=== PATIENT | female | born 1960 | race Caucasian/White ===

== ENCOUNTER → 2018-02-08 11:57 | Outpatient (CLI) | payer OTHER, SELFPAY ==
[2018-02-08 12:23] LABS: Basophils % 0.4 % (0.1-2.0); Eosinophils # 0.1 K/mm3 (0.0-0.4); Eosinophils % 0.6 % (0.1-12.0); Hematocrit 45.3 % (37.0-47.0); Hemoglobin 14.7 g/dL (12.2-16.2); Lymphocytes # 2.4 K/mm3 (0.7-4.5); Lymphocytes % 29.3 K/mm3 (10-50); Mean Corpuscular HGB Conc 32.4 g/dL (31.8-35.4); Mean Corpuscular Volume 89.4 fl (81-99); Mean Platelet Volume 8.4 fl (7.4-10.4); Monocytes # 0.4 K/mm3 (0.1-1.0); Monocytes % 5.5 % (1.7-9.3); Neutrophils # 5.2 K/mm3 (1.8-7.8); Neutrophils % 64.2 % (37.0-80.0); Platelet Count 275 K/mm3 (142-424); Red Blood Count 5.07 M/mm3 (4.20-5.40); Red Cell Distribution Width 13.4 % (11.5-17.5); White Blood Count 8.2 K/mm3 (4.8-10.8)
[2018-02-08 14:17] LABS: Alanine Aminotransferase 15 U/L (12-78); Albumin Level 3.9 gm/dL (3.4-5.0); Albumin/Globulin Ratio 1.2 (1.1-1.8); Alkaline Phosphatase 92 U/L (46-116); Aspartate Amino Transferase 12 U/L (15-37); Bilirubin,Total 0.3 mg/dL (0.2-1.0); Blood Urea Nitrogen 11 mg/dL (7-18); Calcium 9.7 mg/dL (8.5-10.1); Carbon Dioxide 26 mmol/L (21.0-32.0); Chloride 106 mmol/L (98-107); Creatinine,Serum 0.66 mg/dL (0.55-1.02); Estimated Glomerular Filt Rate 92 ml/min (>60); GFR (African American) 111 ML/MIN (>60); Globulin 3.2 gm/dl (1.3-3.2); Glucose 87 mg/dL (74-106); Sodium 143 mmol/L (136-145); Total Protein,Serum 7.1 gm/dL (6.4-8.2)
== END ==
PROVIDERS: Visit Provider Nurse Practitioner Obstetrics & Gynecology
DX: Z01.818 Encounter for other preprocedural examination (principal)
CPT/HCPCS: 36415; 80053; 85025

== ENCOUNTER 2018-02-13 07:30 | Inpatient (IN) ==
--- NOTE | 2018-03-01 07:07 | Progress Note ---
[facility] Anesthesia Checklist - Patient Identification Patient Identification: Arm Band, Verbal (Name & ) - Structural Data Admitted From: Home Consent for Planned Operative Procedure(s) Verified: Yes Verified Documents: Surgical Consent, History and Physical - NPO Status Verified Time NPO: 22:00 - Additional verifications Patient : No Anesthesia Reactions: No - Airway Assessment C-Spine Mobility Assessed: Yes TMJ Mobility Assessed: Yes Dentition: Edentulous - Neurological Assessment Level of Consciousness: Awake Hx Seizures: No Numbness or tingling in extremities: No - Anesthesia Plan Anesthesia Risk discussed: Yes Anesthesia Plan: Verified ASA Class: III Anesthesia Type: General [facility] Anesthesia HX I have reviewed the patient's past medical history: Yes Medical History: Reports:: Chronic Obstructive Pulmonary Disease (COPD), Coronary Artery Disease, Gastroesophageal Reflux Disease(GERD) Denies:: Anxiety, Asthma, Cancer, Depression, Diabetes Mellitus Type 1, Diabetes Mellitus Type 2, Hyperlipidemia, Hypertension, Internal Pacemaker, MRSA , Seizures Other Medical History: Reports: Other (Positive for smoking tobacco). Denies: Blood Transfusion Reaction Other Surgeries: Yes: Tubal Ligation. No: Pacemaker Amputation: No Fractures: No *Family Hx:: Cancer
--- NOTE | 2018-03-01 08:42 | Operative Note ---
Date of procedure: 03/01/18 Pre-op Diagnosis:: Right ovarian mass Post-op Diagnosis:: Right ovarian teratoma with struma ovarii Procedure performed:: Total abdominal hysterectomy, bilateral salpingo-oophorectomy, peritoneal washings Surgeon:: Gutierrez Chaney MD Shrimp Boat Captain(s):: Dr. Gutierrez DRESSMAKER GARMENT FITTER:: Other (Joel bentley) Anesthesia: GETA Estimated blood loss (mL): 250 Clinical Note:: Is a 57-year-old lady who had an ultrasound that showed a right ovarian mass. Initially it was about 4 cm in size. She had a CA 125 that was negative. I followed her 3 months later and it had grown from 4 cm to 5-1/2 cm. Since it got larger in size we offered her total abdominal hysterectomy and bilateral salpingo-oophorectomy with peritoneal washings and possible omentectomy. Risks and benefits of surgery were discussed with the patient prior to surgery. Operative findings:: She had a 6 cm right ovary. The ovary was not adherent and it seemed firm to touch. There was a small nodule approximately centimeter in size on the external aspect of the right ovary. The left ovary was small and atrophic. Both tubes appeared atrophic. The uterus itself was small and postmenopausal. There were no masses in the pelvis or studding of the peritoneum. I examined the upper abdomen and the liver felt smooth with no nodules. Operative note:: She was taken to the operating room where general anesthesia was found be adequate. We also did a preoperative spinal. She was prepped and draped in the normal sterile fashion in the supine position. A Luna catheter was in the bladder. A midline incision was made with knife and carried through to the underlying layer of fascia with cautery. The fascia was then opened in the midline and extended superiorly and inferiorly with cautery. We then grasped the peritoneum and opened this up with Metzenbaum scissors. This incision was then further extended using cautery with good visualization of the bladder inferiorly. We then performed peritoneal washings. We then inserted an O'Mundo-O'Garcia retractor and packed away the bowel with warm moist packs. The uterine cornua were grasped with large Xi clamps. The left round ligament was then grasped and suture ligated. The round ligament was then cut and the anterior peritoneum was opened to the midline. I then fenestrated the posterior aspect of the broad ligament and isolated the infundibulopelvic ligament. This was then clamped cut and doubly suture ligated. I then freed up the peritoneum posteriorly and clamped across the left uterine artery at the internal office. This was then cut and suture ligated. The right round ligament was then grasped and suture ligated. I opened up the round ligament on the right side and then opened the anterior peritoneum to the midline joining up with the other side. The posterior aspect of the right broad ligament was fenestrated with finger and then the infundibulopelvic ligament was clamped with you. This was then cut and doubly suture ligated. At this time I elected to remove the right ovary and I did this at the cornua of the uterus. It was sent to pathology. Pathology showed that it was a benign teratoma with mostly thyroid tissue. There was a small 1 cm fibroid on the outside of the ovary as well. We then isolated and skeletonized the right uterine artery and a Rashard clamp was placed across the uterine artery on the right side at the internal loss. This was cut and suture ligated. We then freed up the bladder anteriorly using both sharp and blunt dissection. Straight Rashard clamps were then used to take down the cardinal and uterosacral ligaments in a [id number] fashion on the left side. This was similar performed on the right side. We clamped cut and suture ligated as we went. We then clamped across the vaginal vault using curved Rashard clamps on both the left and right side. The uterus was then amputated from the top of the vagina. The vaginal fornices were then closed with 0 Vicryl suture in a Rashard fashion. The vault was closed with a single interrupted [id number] 0 Vicryl suture. The pelvis was then rinsed with warm saline and hemostasis was assured. We then placed a large piece of Gelfoam over the vaginal vault. The retractors and packs were removed. The peritoneum was then grasped and closed using running 0 Vicryl suture. The fascia was then closed from superior to inferior using #1 PDS suture. Subcutaneous tissues were then irrigated with warm water and these subcu tissues were then closed using running 2-0 Monocryl suture. Marla were used to close the skin. Sterile dressing was applied. The patient tolerated procedure well and was taken to the recovery room in excellent condition. All sponge instrument and needle counts were correct. The estimated blood loss was approximately 250 cc. Condition: stable Disposition: PACU Specimens:: Uterus, fallopian tubes, bilateral ovaries, peritoneal washings Complications:: None
--- NOTE | 2018-03-01 09:01 | Progress Note ---
[facility] Anesthesia Record Part II Discharge Time: 09:25 Destination: Medical Surgical Department PACU nurse assessment reviewed?: Yes Patient Condition:: Good Anesthesia Complications:: None
--- NOTE | 2018-03-01 09:01 | Progress Note ---
[facility] Anesthesia Record Part I Intake, IV Amount: 1,600 Estimated blood loss (mL): 250 Urine output (mL): 200 Blood Products used (#): none Blood Pressure: 96/57 SaO2: 93 Pulse Rate: 73 Respiratory Rate: 13 Temperature: 97.0 F Patient is:: Drowsy, Nasal O2, Stable Stable to PACU at:: 08:55
[2018-03-01 10:35] LABS: Hematocrit 39.2 % (37.0-47.0); Hemoglobin 12.9 g/dL (12.2-16.2)
[2018-03-02 07:20] LABS: Basophils % 0.2 % (0.1-2.0); Eosinophils # 0.1 K/mm3 (0.0-0.4); Eosinophils % 0.5 % (0.1-12.0); Lymphocytes # 2.3 K/mm3 (0.7-4.5); Lymphocytes % 24.6 K/mm3 (10-50); Mean Corpuscular HGB Conc 32.6 g/dL (31.8-35.4); Mean Corpuscular Hemoglobin 29.4 pg (27.0-31.2); Mean Platelet Volume 8.8 fl (7.4-10.4); Monocytes # 0.6 K/mm3 (0.1-1.0); Monocytes % 5.9 % (1.7-9.3); Neutrophils # 6.5 K/mm3 (1.8-7.8); Neutrophils % 68.9 % (37.0-80.0); Platelet Count 193 K/mm3 (142-424); Red Blood Count 3.88 M/mm3 (4.20-5.40); Red Cell Distribution Width 13.6 % (11.5-17.5); White Blood Count 9.5 K/mm3 (4.8-10.8)
[2018-03-02 07:22] LABS: Anion Gap 6.8 mEq/L (5-15); Potassium 3.8 mmoL/L (3.5-5.1)
[2018-03-02 07:26] LABS: Hemoglobin 11.5 g/dL (12.2-16.2)
--- NOTE | 2018-03-02 10:30 | Progress Note ---
Internal Medicine - PN: Subj *Date: 03/02/18 *Time: 10:27 Interval history: She is doing very well this morning. She is eating and drinking and ambulating. She has had her catheter removed and she is voiding. She denies any chest pain, shortness of breath or calf tenderness. Exam Vital signs and Labs for Last 24 Hours: Temp Pulse Resp BP Pulse Ox 98.3 F 74 18 99/45 96 03/02/18 08:00 03/02/18 08:00 03/02/18 08:00 03/02/18 08:00 03/02/18 08:00 Laboratory Results - last 24 hr 03/01/18 10:27: Hgb 12.9, Hct 39.2 03/02/18 06:54: WBC 9.5, RBC 3.88 L, Hgb 11.5 L D, Hct 35.0 L, MCV 90.0, MCH 29.4, MCHC 32.6, RDW 13.6, Plt Count 193, MPV 8.8, Neut % (Auto) 68.9, Lymph % ( Auto) 24.6, [place] % (Auto) 5.9, Eos % (Auto) 0.5, Baso % (Auto) 0.2, Neut # (Auto ) 6.5, Lymph # (Auto) 2.3, [place] # (Auto) 0.6, Eos # (Auto) 0.1, Baso # (Auto) 0.0 03/02/18 06:54: Sodium 141, Potassium 3.8, Chloride 109 H, Carbon Dioxide 29, Anion Gap 6.8, BUN 6 L, Creatinine 0.62, Estimated Creat Clear 94, Estimated GFR 99, Est GFR ( Amer) 120, Glucose 88 I & O for Last 24 hours: Intake & Output 02/27/18 02/28/18 03/01/18 03/02/18 11:59 11:59 11:59 11:59 Intake Total 1650 / 1650 3242 / 3242 Output Total 2600 / 2600 Balance 1625 / 1625 642 / 642 - Constitutional no acute distress - *Routine HEENT Exam Head: Present: normocephalic - *Routine Respiratory Exam Comments: She has good air entry with no accessory muscle use. - *Routine Cardiovascular Exam Present: Normal S1, Normal S2 - *Routine Abdominal Exam Present: soft, normoactive bowel sounds Comments: Her incision is clean and dry. Assessment and Plan (1) Ovarian teratoma Current visit: Yes Status: Acute Category: Medical Code(s): D27.9 - Benign neoplasm of unspecified ovary - Assessment and plan all Dx Assessment and Plan for all problems:: She is doing very well this morning. She is eating and drinking and ambulating. She is voiding well. We will plan to send her home in 48 hours.
--- NOTE | 2018-03-02 10:52 | Pharmacy Consult Notes ---
[facility] Pharmacy VTE Monitoring - Patient Demographics Admission date: 03/01/18 Report Date: 03/02/18 Time: 10:51 Allergies/Adverse Reactions: Patient Allergies No Known Allergies Allergy (Verified 03/01/18 16:12) Height: 1.63 m Weight: 60.328 kg Patient Problems: Current Active Problems Ovarian teratoma (Acute) - VTE Risk Labs: VTE Related Lab Results Hgb 11.5 g/dL (12.2-16.2) L D 03/02/18 06:54 Hct 35.0 % (37.0-47.0) L 03/02/18 06:54 Plt Count 193 K/mm3 (142-424) 03/02/18 06:54 BUN 6 mg/dL (7-18) L 03/02/18 06:54 Creatinine 0.62 mg/dL (0.55-1.02) 03/02/18 06:54 Estimated Creat Clear 94 mL/min (0-300) 03/02/18 06:54 - Prophylaxis VTE Prophylaxis Ordered?: Yes Types of VTE Prophylaxis: IPCS Knee High Location of Applied Device: Bilateral Lower Extremeties Pharmacologic Type: Enoxaparin
--- NOTE | 2018-03-03 18:38 | Progress Note ---
Internal Medicine - PN: Subj *Date: 03/03/18 *Time: 13:35 Interval history: POD #2 No new complaints Ambulating and voiding without difficulty Tolerating regular diet Asymptomatic with mild anemia (Hgb 11.5); denies CP/SOB/dizziness Exam Vital signs and Labs for Last 24 Hours: Temp Pulse Resp BP Pulse Ox 98.4 F 86 18 124/70 96 03/03/18 16:00 03/03/18 16:00 03/03/18 16:00 03/03/18 16:00 03/03/18 16:00 Postop Hgb 11.5 (preop 12.9) I & O for Last 24 hours: Intake & Output 03/01/18 03/02/18 03/03/18 03/04/18 11:59 11:59 11:59 11:59 Intake Total 1650 / 1650 3722 / 3722 3331 / 3331 Output Total 2950 / 2950 3900 / 3900 1500 / 1500 Balance 1625 / 1625 772 / 772 -569 / -569 -1500 / -1500 Weight 133 lb - Constitutional no acute distress - *Routine Respiratory Exam Absent: accessory muscle use, respiratory distress - *Routine Cardiovascular Exam Absent: tachycardia - *Routine Abdominal Exam Present: soft. Absent: tenderness, distended, guarding Comments: dressing dry/intact - *Routine Extremities Exam Present: pulses intact. Absent: edema, tenderness - *Routine Skin Exam Present: dry, warm. Absent: lesions, rash - *Routine Neurological Exam Present: alert, oriented X3, normal speech. Absent: altered mental status - Routine Psychiatric Exam Present: normal affect. Absent: depressed, anxious Assessment and Plan (1) Ovarian teratoma Current visit: Yes Status: Acute Category: Medical Code(s): D27.9 - Benign neoplasm of unspecified ovary (2) S/P hysterectomy with oophorectomy Current visit: Yes Status: Acute Category: Surgical Code(s): Z90.710 - Acquired absence of both cervix and uterus; Z90.721 - Acquired absence of ovaries, unilateral (3) Anemia due to acute blood loss Current visit: Yes Status: Acute Category: Medical Code(s): D62 - Acute posthemorrhagic anemia - Assessment and plan all Dx Assessment and Plan for all problems:: POD # 2 Appropriate progress Continue routine postop care Anticipate discharge home in am
--- NOTE | 2018-03-04 08:05 | Discharge Summary ---
General - General Admission date:: 03/01/18 Discharge date: 03/04/18 HPI HPI: She is a 57-year-old lady who complained of a right-sided mass. It had grown from 4-5 cm and as result of that she was offered total abdominal history and bilateral salpingo-oophorectomy. We were concerned that it may have been a cancer given its size but her CA 125 was normal and at the time of surgery her pathology report revealed a teratoma. Hospital Course Hospital Course: She underwent a total abdominal hysterectomy and bilateral salpingo- oophorectomy through a midline incision. Peritoneal washings were done as well. A frozen section revealed a teratoma which was mostly thyroid tissue. She has done well postoperatively and has remained afebrile throughout her hospitalization. She is eating and drinking and ambulating. She is voiding well. She has not had a bowel movement yet. She denies any chest pain, shortness of breath or calf tenderness. She is a smoker and has not been smoking or asking for a patch while hospitalized as well. She says she is going to try and quit smoking. She will be discharged home to follow-up with me in 2 weeks time to have her abdifatah removed. She will take whatever she needs to make her bowels move. She was given a prescription for Percocet 5/325, 30 tablets and she will take ibuprofen as well. Her condition on discharge is stable and improved. Objective Vital signs: Temp Pulse Resp BP Pulse Ox 98.4 F 75 18 128/76 96 03/04/18 07:40 03/04/18 07:40 03/04/18 07:40 03/04/18 07:40 03/04/18 07:40 no acute distress - *Routine HEENT Exam Head: Present: normocephalic - *Routine Abdominal Exam Present: soft, normoactive bowel sounds DS: Diagnosis - Discharge Diagnosis (1) Ovarian teratoma Status: Acute (2) S/P hysterectomy with oophorectomy Status: Acute (3) Anemia due to acute blood loss Status: Acute Discharge Plan - Patient Discharge Instructions ACTIVITY: No heavy lifting DIET: continue same diet - Follow up Plan Disposition: Home, Self-Jail Medications: Home Medications Medication Instructions Recorded Confirmed Type metoprolol tartrate 25 mg tablet 25 mg PO BID 02/13/18 03/01/18 History Prescriptions/Medication Reconciliation: Continue metoprolol tartrate 25 mg tablet 25 mg PO BID
== END 2018-03-04 09:20 | disposition home or self-care (01) ==
LOC: 2ND 03-01 06:03 → EDSTATUS 03-01 07:30 → OB 03-01 09:30
PROVIDERS: ADMIT Nurse Practitioner Obstetrics & Gynecology; ATTEND Nurse Practitioner Obstetrics & Gynecology

== ENCOUNTER → 2018-02-13 10:15 | Outpatient (CLI) | payer OTHER, SELFPAY ==
[2018-02-13 11:21] LABS: T4 (Thyroxine) 9.1 ug/dl (4.7-13.3); Thyroid Stimulating Hormone 4.43 uIU/ml (0.358-3.740); Triiodothryronine (T3) Uptake 33 % (31-39)
== END ==
PROVIDERS: Visit Provider Nurse Practitioner Obstetrics & Gynecology
DX: Z01.818 Encounter for other preprocedural examination (principal); Z01.419 Encounter for gynecological examination (general) (routine) without abnormal findings; R53.82 Chronic fatigue, unspecified
CPT/HCPCS: 36415; 84436; 84443; 84479

== ENCOUNTER → 2022-01-10 14:34 | Outpatient (CLI) | payer OTHER, SELFPAY ==
--- NOTE | 2022-01-10 14:40 | XR_ITS ---
FINAL REPORT CLINICAL HISTORY: Pneumonia LLL FINDINGS: Two views of the chest were obtained. The heart size and pulmonary vascularity are within normal limits. The mediastinum is normal. No acute pulmonary abnormality is identified. There is no pneumothorax. The bony thorax is intact. IMPRESSION: No active cardiopulmonary disease. Reviewed, Interpreted and Dictated by Ryan Montiel III, MD Transcribed by Homa Roberson Authenticated by Ryan Montiel III, MD on 01/10/2022 03:41:32 PM [facility]
== END ==
PROVIDERS: PCP Family Medicine; Visit Provider Internal Medicine Pulmonary Disease
DX: R06.02 Shortness of breath (principal)
CPT/HCPCS: 71046

== ENCOUNTER → 2022-02-01 14:45 | Outpatient (CLI) | payer OTHER, SELFPAY ==
--- NOTE | 2022-02-01 14:45 | CT_ITS ---
FINAL REPORT CLINICAL HISTORY: CURRENT SMOKER FINDINGS: Low-Dose Chest CT CTDI vol (mGy): 2.90 DLP (mGy-cm): 104.73 Axial images were obtained from the lung apex to the mid abdomen by computed tomography. Low-dose protocol was utilized. FINDINGS: CHEST: There is no axillary adenopathy. There is no hilar or mediastinal adenopathy. The heart is proper size. There is no pericardial or pleural effusion. Limited images of the upper abdomen are unremarkable. Lung window images demonstrate mild changes of emphysema. There is mild pulmonary scarring. There are several calcified granulomas. There is a 5 mm nodule in the medial left upper lobe, seen on image 28. On image 60, there is a 2 mm nodule in the posterior right lower lobe. There is a 7 mm ground-glass nodule in the lateral right middle lobe seen on image 55. IMPRESSION: Bilateral pulmonary nodules as described. Lung RADS category 2. Recommend 12 month follow-up low-dose chest CT. Reviewed, Interpreted and Dictated by Ryan Montiel III, MD Transcribed by Laney Lui Authenticated by Ryan Montiel III, MD on 02/01/2022 04:10:43 PM [facility]
== END ==
PROVIDERS: PCP Family Medicine; Visit Provider Internal Medicine Pulmonary Disease
DX: Z87.891 Personal history of nicotine dependence (principal); Z12.2 Encounter for screening for malignant neoplasm of respiratory organs
CPT/HCPCS: 71271

== ENCOUNTER → 2022-04-29 08:30 | Outpatient (CLI) | payer OTHER, SELFPAY ==
[2022-04-28 18:08] LABS: Coronavirus 19, PCR Not Detected (NotDetected); Influenza A, PCR Not Detected (NotDetected); Influenza B, PCR Not Detected (NotDetected)
== END ==
PROVIDERS: PCP Emergency Medicine; Visit Provider Emergency Medicine
DX: Z20.822 Contact with and (suspected) exposure to COVID-19 (principal); R68.89 Other general symptoms and signs
CPT/HCPCS: C9803; U0003; U0005

== ENCOUNTER → 2022-06-20 11:40 | Outpatient (CLI) | payer OTHER, SELFPAY | PROVIDERS: PCP Emergency Medicine; Visit Provider Internal Medicine Gastroenterology | DX: Z01.812 Encounter for preprocedural laboratory examination (principal); Z20.822 Contact with and (suspected) exposure to COVID-19; Z13.810 Encounter for screening for upper gastrointestinal disorder | CPT/HCPCS: C9803; U0003; U0005 ==

== ENCOUNTER 2022-06-21 10:34 | Day surgery (SDC) | payer OTHER, SELFPAY ==
[2022-06-21 13:13] VITALS: BP 134/79; PULSE 68; RESP 18; TEMP 36.8; O2SAT 93; BMI 22.1
--- NOTE | 2022-06-21 14:31 | P.PN_ITS ---
PFSH PFS Medical History (Updated 06/21/22 @ 13:05 by Marisela Quintana RN) Arthritis COPD (chronic obstructive pulmonary disease) GERD (gastroesophageal reflux disease) Surgical History (Updated 06/21/22 @ 13:06 by Marisela Quintana RN) H/O: hysterectomy History of colonoscopy Family History (Updated 06/21/22 @ 13:06 by Marisela Quintana RN) Other Family history of myocardial infarction Social History (Updated 06/21/22 @ 13:09 by Marisela Quintana RN) Smoking Status: Current every day smoker tobacco type: cigarettes packs per day: 1 alcohol intake: never substance use type: denies use current occupational status: employed Travel in the last 8 weeks: None household members: family housing: house current occupation: caregiver current occupational exposures/hazards: Yes caffeine: Yes [facility] Anesthesia Checklist Patient Identification Patient Identification: Arm Band Structural Data Admitted From: Home Planned Operative Procedure/s: egd Consent for Planned Operative Procedure(s) Verified: Yes Verified Documents: Surgical Consent and History and Physical NPO Status Verified Time NPO: 00:00 Additional verifications Anesthesia Reactions: No Hx Blood Transfusions: No Blood Transfusion Reaction: No Airway Assessment C-Spine Mobility Assessed: Yes TMJ Mobility Assessed: Yes Dentition: Edentulous Neurological Assessment Level of Consciousness: Awake and Alert Anesthesia Plan Anesthesia Risk discussed: Yes Anesthesia Plan: Verified ASA Class: II Anesthesia Type: MAC
[2022-06-21 14:36] VITALS: O2SAT 97
--- NOTE | 2022-06-21 14:43 | HMH.SCOPE ---
Procedure: Date: 06/21/22 Patient Date of :: 1960 Procedure Performed:: EGD Indications:: GERD Performing Provider:: Irving Keller MD Referring Provider:: Oleksandr Wilcox MD Sedation:: See RN notes Procedure:: The gastroscope was gently passed through the incisoral orifice into the oral cavity and under direct visualization the esophagus was intubated. The endoscope was passed down the esophagus, through the stomach, and into the duodenum. Color, texture, mucosa, and anatomy of the esophagus, stomach, and duodenum were carefully examined with the scope. Findings:: Oropharynx: normal Esophagus: normal. Biopsies obtained. Empiric dilatation performed with 54F bougie dilator EG Junction: measured at 38 cm Cardia: normal Fundus: normal Body: normal Antrum: normal Duodenal bulb: normal Duodenum (second and third portion): normal Recommendations:: Await pathology results Continue pantoprazole 40 mg once daily Can use famotidine 20 mg 1-2 times per day as needed Avoid late night eating of large meal within 3 hours of bed time Complications:: None Estimated blood obtained (mL): 0
[2022-06-21 14:45] VITALS: BP 105/67; PULSE 65; RESP 18; TEMP 36.3; O2SAT 90
[2022-06-21 14:55] VITALS: BP 105/68; PULSE 60; RESP 16; O2SAT 98
[2022-06-21 15:05] VITALS: BP 117/70; PULSE 61; RESP 16; O2SAT 99
[2022-06-21 15:25] VITALS: BP 121/67; PULSE 63; RESP 16; TEMP 36.3; O2SAT 99
== END 2022-06-21 15:25 | disposition home or self-care (01) ==
PROVIDERS: PCP Emergency Medicine; Visit Provider Internal Medicine
PROC: 0DJ08ZZ Inspection of Upper Intestinal Tract, Via Natural or Artificial Opening Endoscopic (ICD-10-PCS; CPT 43235; principal; 2022-06-21 13:30)
DX: K21.9 Gastro-esophageal reflux disease without esophagitis (principal); Z72.0 Tobacco use; Z79.899 Other long term (current) drug therapy
CPT/HCPCS: 43239; 43248

== ENCOUNTER → 2022-08-02 15:30 | Outpatient (CLI) | payer OTHER, SELFPAY ==
[2022-08-02 18:28] LABS: Basophils # 0.1 K/mm3 (0-0.2); Basophils % 1.1 % (0.1-2.0); Eosinophils # 0.1 K/mm3 (0.0-0.4); Eosinophils % 1.3 % (0.1-12.0); Hemoglobin 14.5 g/dL (12.2-16.2); Lymphocytes # 3.5 K/mm3 (0.7-4.5); Lymphocytes % 43.3 % (10-50); Mean Corpuscular HGB Conc 32.2 g/dL (31.8-35.4); Mean Corpuscular Hemoglobin 28.2 pg (27.0-31.2); Mean Corpuscular Volume 87.5 fl (81-99); Mean Platelet Volume 10.4 fl (7.4-10.4); Monocytes # 0.6 K/mm3 (0.1-1.0); Monocytes % 7.6 % (1.7-9.3); Neutrophils # 3.8 K/mm3 (1.8-7.8); Neutrophils % 46.6 % (37.0-80.0); Platelet Count 401 K/mm3 (142-424); Red Blood Count 5.14 M/mm3 (4.20-5.40); Red Cell Distribution Width 15.6 % (11.5-17.5); White Blood Count 8.2 K/mm3 (4.8-10.8)
[2022-08-02 18:35] LABS: Alanine Aminotransferase 14 U/L (12-78); Albumin/Globulin Ratio 1.4 (1.1-1.8); Alkaline Phosphatase 125 U/L (38-126); Anion Gap 13.3 mEq/L (5-15); Aspartate Amino Transferase 24 U/L (14-36); Bilirubin,Total 0.2 mg/dl (0.2-1.3); Blood Urea Nitrogen 19 mg/dl (7-17); Calcium 9.3 mg/dl (8.4-10.2); Carbon Dioxide 27 mmol/L (22.0-30.0); Chloride 103 mmol/L (98-107); Chol/HDL Ratio 3.3 (1-3.5); Cholesterol 221 mg/dl (140-200); Estimated Glomerular Filt Rate 85 ml/min (>60); GFR (African American) 103 ML/MIN (>60); Globulin 2.8 g/dL (1.3-3.2); Glucose 87 mg/dl (74-100); HDL Cholesterol 66 mg/dl (40-60); Potassium 4.3 mmoL/L (3.5-5.1); Sodium 139 mmol/L (136-145); Total Protein,Serum 6.8 g/dl (6.3-8.2); Triglycerides 76 mg/dl (30-150); VLDL Cholesterol 15 mg/dL (0-40)
[2022-08-02 18:45] LABS: Direct LDL Cholesterol 127.75 mg/dL (100-129)
[2022-08-02 18:52] LABS: 25-OH Vitamin D, Total 13.3 ng/mL (30-100)
[2022-08-02 18:57] LABS: Amphetamine/Metha Screen,Urine Negative ng/ml (<1000); Barbiturates Screen,Urine Negative ng/ml (<200)
[2022-08-02 18:58] LABS: Benzodiazepines Screen,Urine Negative ng/ml (<200)
[2022-08-02 18:59] LABS: Cannabinoid Screen,Urine Negative ng/ml (<50); Cocaine Screen,Urine Negative ng/ml (<300)
[2022-08-02 19:00] LABS: Methadone Screen,Urine Negative ng/ml (<300)
[2022-08-02 19:01] LABS: Opiate Screen,Urine Negative ng/ml (<300); Phencyclidine Screen,Urine Negative ng/ml (<25)
[2022-08-02 19:07] LABS: Thyroid Stimulating Hormone 8.77 uIU/mL (0.465-4.68)
== END ==
PROVIDERS: PCP Emergency Medicine; Visit Provider Emergency Medicine
DX: D62 Acute posthemorrhagic anemia (principal); N39.0 Urinary tract infection, site not specified; E55.9 Vitamin D deficiency, unspecified; Z79.899 Other long term (current) drug therapy; B96.29 Other Escherichia coli [E. coli] as the cause of diseases classified elsewhere
CPT/HCPCS: 80053; 80061; 80305; 82306; 84443; 85025; 87086; 87088; 87186

== ENCOUNTER → 2022-08-15 12:46 | Outpatient (CLI) | payer OTHER, SELFPAY ==
--- NOTE | 2022-08-15 12:48 | US_ITS ---
FINAL REPORT CLINICAL HISTORY: RT CLAUDICATION,RT REST PAIN,SMOKER,HLD FINDINGS: ANKLE-BRACHIAL PRESSURE INDICES Pressure indices are as follows: RIGHT LOWER EXTREMITY: Ankle-brachial pressure index: 1.1 Comments: Normal LEFT LOWER EXTREMITY: Ankle-brachial pressure index: 1.0 Comments: Normal CONCLUSION: No evidence of significant obstructive peripheral vascular disease of the lower extremities Reviewed, Interpreted and Dictated by Ryan Montiel III, MD Transcribed by Laney Lui Authenticated and [facility]
--- NOTE | 2022-08-15 13:54 | MR_ITS ---
FINAL REPORT CLINICAL HISTORY: back pain lower back pain with pain , numbness, and tingling in right leg x 3 months FINDINGS: Multiplanar MR imaging of the lumbar spine was performed without contrast. On the sagittal T2-weighted images, disc degeneration is seen at multiple levels. There is disc space narrowing and endplate change at L4-L5. The vertebral alignment is normal. There is no evidence of fracture. No bony mass is identified. The conus has an unremarkable appearance. No significant canal stenosis is identified. L1-2: An annular bulge is present. There is no significant canal stenosis or neural foraminal narrowing. L2-3: An annular bulge is present. There is no significant canal stenosis or neural foraminal narrowing. L3-4: An annular bulge is present. There is no significant canal stenosis or neural foraminal narrowing. L4-5: There is an annular bulge, facet arthropathy and vertebral osteophytes. There is a right foraminal disc protrusion. There is moderate bilateral neural foraminal narrowing. L5-S1: There is an annular bulge and facet arthropathy. There is mild left neural foraminal narrowing. There is mild spurring of the left SI joint. IMPRESSION: Multilevel degenerative disc disease with areas of neural foraminal narrowing. Right foraminal disc protrusion at L4-L5 without significant central canal stenosis. Reviewed, Interpreted and Dictated by Ryan Montiel III, MD Transcribed by Balaji Pal Authenticated and [facility]
== END ==
PROVIDERS: PCP Emergency Medicine; Visit Provider Emergency Medicine
DX: M79.605 Pain in left leg (principal); M79.604 Pain in right leg; M54.9 Dorsalgia, unspecified; M54.50 Low back pain, unspecified
CPT/HCPCS: 72148; 76376; 93923

== ENCOUNTER → 2022-09-18 08:45 | Outpatient (POV) | payer OTHER, SELFPAY ==
--- NOTE | 2022-09-18 09:05 | EXP.PAIN.OV ---
HPI Data of Consult Patient: new to practice Consult date: 09/18/22 Requesting Physician: Shagufta Shirley APRN Primary Care Provider: Oleksandr Wilcox MD Consult Narrative Reason for consult: low back pain, leg pain History of present illness: Ms. Lee is a 62 year old female who presents today as a new patient. She is a referral from Dr. Oleksandr Wilcox's office. Patient rates her pain today a 7 out of 10. Patient states the pain is all in her low back that radiates down her legs to her knees with her right side being the most prominent. Patient states this has been going on for months and states that she did not have any trauma or injury that coincided with when her pain started. Patient states she has had this pain that has progressively worsened over time. Patient describes this as a aching sensation that is worse with prolonged walking or standing. Patient states that occasionally short-term sitting will help her pain symptoms. Patient states this does cause problems with performing activities of daily living such as grocery shopping or light housework. Patient has stated that she has had falls in the past. Patient states she does manage her pain symptoms with [id number] Tylenol or ibuprofen however she is now on Tylenol 3 that she states provides minimal improvement of her symptoms. Patient also is managed with gabapentin 100 mg 3 times a day from Dr. Wilcox's office. Patient denies any side effects from this medication. She states this medication is for her neuropathy. Patient states that she has not tried heat or ice. Patient has had physical therapy that provided worsening of her symptoms. Her Fish is [id number]. It has been reviewed and appropriate. CC: Shagufta Shirley APRN [facility] Disclaimer: The information contained in this section may have been updated after the patient was seen, as this information can be updated by other users. Medical History (Updated 09/18/22 @ 09:39 by Shagufta Shirley APRN) Arthritis COPD (chronic obstructive pulmonary disease) DDD (degenerative disc disease), lumbar GERD (gastroesophageal reflux disease) Surgical History (Updated 06/21/22 @ 13:06 by Marisela Quintana RN) H/O: hysterectomy History of colonoscopy Family History (Updated 06/21/22 @ 13:06 by Marisela Quintana RN) Other Family history of myocardial infarction Social History (Updated 06/21/22 @ 13:09 by Marisela Quintana RN) Smoking Status: Current every day smoker tobacco type: cigarettes packs per day: 1 alcohol intake: never substance use type: denies use current occupational status: employed Travel in the last 8 weeks: None household members: family housing: house current occupation: caregiver current occupational exposures/hazards: Yes caffeine: Yes Review of Systems Review of Systems Review of systems:: pertinent systems reviewed and negative unless documented below Review of systems (narrative): Review of Systems: General: No recent weight changes, no fever, no sleep disturbances Respiratory: No cough, no shortness of air, no recurring pulmonary infections Cardiovascular/peripheral vascular: No chest pain, no palpitations, no edema, no shortness of breath Gastrointestinal: No new onset incontinence, normal bowel movements reported Genitourinary: No new onset incontinence Musculoskeletal: Low back pain, leg pain Psychiatric: [Normal mood/affect] Neurological: [Denies weakness in extremities], [denies balance issues] Meds Home Medications and Allergies Home Medications Medication Instructions Recorded Confirmed Type loratadine 10 mg capsule 10 mg PO DAILY allergies 01/10/22 08/29/22 History montelukast 10 mg tablet 10 mg PO DAILY . 01/10/22 08/29/22 History escitalopram oxalate 10 mg tablet See Rx Instructions .Route 06/21/22 08/29/22 History .COMPLEX Depression clonazepam 0.5 mg tablet (Klonopin) 0.5 mg PO BID Anxiety #60 tabs 08/02/22 08/29/22 Rx
[2022-09-18 09:17] VITALS: BP 116/50; PULSE 78; RESP 18; O2SAT 97; BMI 22.3
== END ==
PROVIDERS: PCP Emergency Medicine; Visit Provider Nurse Practitioner Family
DX: M51.16 Intervertebral disc disorders with radiculopathy, lumbar region (principal); M46.1 Sacroiliitis, not elsewhere classified; M79.604 Pain in right leg; M79.605 Pain in left leg; Z72.0 Tobacco use; Z79.899 Other long term (current) drug therapy
CPT/HCPCS: 99202; G0463

== ENCOUNTER 2022-09-26 09:12 | Day surgery (SDC) | payer OTHER, SELFPAY ==
[2022-09-26 09:20] VITALS: BP 110/77; PULSE 90; RESP 18; TEMP 36.6; O2SAT 96; BMI 22.3
[2022-09-26 09:26] VITALS: BP 128/69; PULSE 81; RESP 18; O2SAT 98
[2022-09-26 09:27] VITALS: BP 128/69; PULSE 81; RESP 18; O2SAT 97
[2022-09-26 09:32] VITALS: BP 117/73; PULSE 82; RESP 18; O2SAT 96
--- NOTE | 2022-09-26 09:41 | P.PCN_ITS ---
Procedure Date: 09/26/22 Time: 09:15 Anesthesiologist:: Kelby Mina CRNA Complications:: None Pre-procedure Diagnosis:: Bilateral sacroiliitis Post-procedure Diagnosis:: Same Indications for Procedure:: Very pleasant 62-year-old female comes our clinic today for initial bilateral sacroiliac joint injections. Patient has extreme point tenderness over the bilateral sacroiliac joints. Patient describes having difficulty transitioning from sitting to standing. She rates her pain 7/10. Procedure Details:: Procedure: Bilateral sacroiliac joint injections under fluoroscopy Informed consent was obtained and the risks and benefits of the procedure were explained to the patient.~ The patient was taken to the procedure room and noninvasive monitors were placed including a noninvasive blood pressure cuff and pulse oximeter.~ The patient was placed prone on the procedure table. Both hips were cleansed using Betadine as a cleansing solution. C-arm fluoroscopy was used to view the right sacroiliac joint.~ The skin and subcutaneous tissues were anesthetized using lidocaine 1.5% and a 25-gauge needle.~ After this, a 22-gauge spinal needle was inserted under fluoroscopic guidance into the inferior aspect of the right sacroiliac joint.~ Omnipaque dye was injected and good spread was seen throughout the joint.~ After this, approximately 5 mL of bupivacaine, 0.25% and Depo-Medrol, 40 mg was incrementally injected into the right sacroiliac joint. We then moved to the left sacroiliac joint.~ The skin and subcutaneous tissues were anesthetized using lidocaine 1.5% and a 25-gauge needle.~ After this, a 22- gauge spinal needle was inserted under fluoroscopic guidance into the inferior aspect of the left sacroiliac joint.~ Omnipaque dye was injected and good spread was seen throughout the joint. After this, approximately 5 mL of bupivacaine, 0.25% and Depo-Medrol, 40 mg was incrementally injected into the left sacroiliac joint.~ The patient tolerated the procedure well with no complications. The patient was observed in the Pain Clinic and then was discharged home neurologically intact. Plan and Disposition:: Patient was discharged without pain.
== END 2022-09-26 09:32 | disposition home or self-care (01) ==
LOC: SC.PAINP 09:12
PROVIDERS: PCP Emergency Medicine; Visit Provider Nurse Anesthetist, Certified Registered
DX: M46.1 Sacroiliitis, not elsewhere classified (principal); F17.210 Nicotine dependence, cigarettes, uncomplicated
CPT/HCPCS: 27096; G0260; J1040

== ENCOUNTER → 2022-10-10 10:49 | Outpatient (POV) | payer OTHER, SELFPAY ==
[2022-10-10 11:05] VITALS: BP 112/54; PULSE 77; RESP 18; O2SAT 98; BMI 22.3
--- NOTE | 2022-10-10 11:31 | EXP.PAIN.SOA ---
[facility] Pain Management SOAP Note Subjective:: Patient is a pleasant 62-year-old female who presents today for follow-up of bilateral SI injections on 09/26/2022. We are currently treating the patient for low back pain, degenerative disc disease of lumbar spine with lumbar radiculopathy symptoms, sacroiliitis. Today the patient states she had at least 50% improvement following these injections that provided significant relief for approximately 2 weeks. Today she states her pain is a 5 out of 10. She denies any new trauma or injury. She denies any change location or type of pain she experiences. Patient does describe this as a aching, throbbing sensation that is worse with increased activity such as prolonged standing, walking, sitting. Patient does state this affects her ability to perform activities of daily living like grocery shopping or light housework. Patient is prescribed gabapentin 100 mg 3 times a day, clonazepam 0.5 mg twice a day and Tylenol 3 twice a day from Dr. Wilcox's office. Patient denies any side effects from these medications. She states these medications do help. Patient has tried physical therapy in the past however this worsened her symptoms. Her Fish is [id number]. Its been reviewed and appropriate. Review of Systems: General: No recent weight changes, no fever, no sleep disturbances Respiratory: No cough, no shortness of air, no recurring pulmonary infections Cardiovascular/peripheral vascular: No chest pain, no palpitations, no edema, no shortness of breath Gastrointestinal: No new onset incontinence, normal bowel movements reported Genitourinary: No new onset incontinence Musculoskeletal: Low back pain, bilateral leg pain Psychiatric: [Normal mood/affect] Neurological: [Denies weakness in extremities], [denies balance issues] Objective:: Physical Exam: General: Alert and oriented x3, no acute distress, pleasant and cooperative Lungs: Respirations even and unlabored, symmetrical chest expansion Eyes: PERRL Musculoskeletal: Flexion and extension of lumbar [spine] somewhat guarded secondary to pain, [antalgic gait noted] extreme point tenderness along bilateral SI's and positive bilateral Loli's, Tex's, Gaenslen's, compression and distraction exam Neurological: Speech clear, no gross sensory deficit Assessment:: Degenerative disc disease of lumbar spine with lumbar radiculopathy symptoms, low back pain, sacroiliitis Plan:: Patient continues to experience significant pain along her bilateral SI's. Patient had limited range of motion of her lumbar spine along with extreme point tenderness along bilateral SI's and positive bilateral Loli's, Tex's, Gaenslen's, compression and distraction exam. Patient previously had a SI injection that provided significant improvement of at least 50% lasting 2 weeks. I have discussed with the patient that she may benefit from repeat bilateral SI injections. Risk and benefits were discussed with the patient. She would like to proceed forward with this plan of care. We will schedule her for bilateral SI injections. Patient has been instructed to contact the clinic with any concerns before the next appointment. Dr. Robbins has reviewed this note and agrees with this plan of care. This note was dictated using voice recognition software and make contain errors or omissions. [facility] Disclaimer: The information contained in this section may have been updated after the patient was seen, as this information can be updated by other users. Medical History Arthritis COPD (chronic obstructive pulmonary disease) DDD (degenerative disc disease), lumbar GERD (gastroesophageal reflux disease) Surgical History H/O: hysterectomy History of colonoscopy Family History Other Family history of myocardial infarction Social
== END ==
PROVIDERS: PCP Emergency Medicine; Visit Provider Nurse Practitioner Family
DX: M51.16 Intervertebral disc disorders with radiculopathy, lumbar region (principal); M46.1 Sacroiliitis, not elsewhere classified; F17.210 Nicotine dependence, cigarettes, uncomplicated; Z79.899 Other long term (current) drug therapy
CPT/HCPCS: 99212; G0463

== ENCOUNTER 2022-10-13 11:04 | Day surgery (SDC) | payer OTHER, SELFPAY ==
[2022-10-13 11:18] VITALS: BP 111/72; PULSE 73; RESP 18; TEMP 36.6; O2SAT 98; BMI 22.3
[2022-10-13 11:21] VITALS: BP 143/77; PULSE 76; RESP 18; O2SAT 98
[2022-10-13 11:23] VITALS: BP 143/77; PULSE 76; RESP 18; O2SAT 97
[2022-10-13 11:28] VITALS: BP 101/63; PULSE 72; RESP 18; O2SAT 98
--- NOTE | 2022-10-13 12:00 | P.PCN_ITS ---
Procedure Date: 10/13/22 Time: 11:45 Anesthesiologist:: Kelby Mina CRNA Complications:: None Pre-procedure Diagnosis:: Bilateral sacroiliitis Post-procedure Diagnosis:: Same Indications for Procedure:: Patient is a pleasant 62-year-old female comes our clinic today for bilateral sacroiliac joint injections. She has extreme point tenderness upon examination over the bilateral sacroiliac joint areas. She rates her pain 7/10. Patient has had these injections in the past with significant improvement terms of her posterior hip pain bilaterally. Procedure Details:: Procedure: Bilateral sacroiliac joint injections under fluoroscopy Informed consent was obtained and the risks and benefits of the procedure were explained to the patient.~ The patient was taken to the procedure room and noninvasive monitors were placed including a noninvasive blood pressure cuff and pulse oximeter.~ The patient was placed prone on the procedure table. Both hips were cleansed using Betadine as a cleansing solution. C-arm fluoroscopy was used to view the right sacroiliac joint.~ The skin and subcutaneous tissues were anesthetized using lidocaine 1.5% and a 25-gauge needle.~ After this, a 22-gauge spinal needle was inserted under fluoroscopic guidance into the inferior aspect of the right sacroiliac joint.~ Omnipaque dye was injected and good spread was seen throughout the joint.~ After this, approximately 5 mL of bupivacaine, 0.25% and Depo-Medrol, 40 mg was incrementally injected into the right sacroiliac joint. We then moved to the left sacroiliac joint.~ The skin and subcutaneous tissues were anesthetized using lidocaine 1.5% and a 25-gauge needle.~ After this, a 22- gauge spinal needle was inserted under fluoroscopic guidance into the inferior aspect of the left sacroiliac joint.~ Omnipaque dye was injected and good spread was seen throughout the joint. After this, approximately 5 mL of bupivacaine, 0.25% and Depo-Medrol, 40 mg was incrementally injected into the left sacroiliac joint.~ The patient tolerated the procedure well with no complications. The patient was observed in the Pain Clinic and then was discharged home neurologically intact. Plan and Disposition:: Patient was discharged without incident.
== END 2022-10-13 11:28 | disposition home or self-care (01) ==
LOC: SC.PAINP 11:05
PROVIDERS: PCP Emergency Medicine; Visit Provider Nurse Anesthetist, Certified Registered
DX: M46.1 Sacroiliitis, not elsewhere classified (principal)
CPT/HCPCS: 27096; G0260; J1040

== ENCOUNTER → 2022-10-26 14:51 | Outpatient (POV) | payer OTHER, SELFPAY ==
[2022-10-26 15:22] VITALS: BP 120/89; PULSE 80; RESP 18; O2SAT 98; BMI 25.7
--- NOTE | 2022-10-26 15:24 | EXP.PAIN.SOA ---
[facility] Pain Management SOAP Note Subjective:: Patient is a pleasant 62-year-old female who presents today for follow-up of bilateral SI injections on 10/13/2022. We are currently treating the patient for degenerative disc disease of lumbar spine with lumbar radiculopathy symptoms, low back pain, sacroiliitis. Today the patient states that she has had at least 60% improvement and feels like these injections are still providing relief. Today she does rate her pain a 7 out of 10 however she states it is more so due to the cold rainy weather today. Patient does state that her pain is often affected by the weather and does believe it is just arthritis. Patient denies any new trauma or injury. Patient denies any change location or type of pain she experiences. Patient is currently managed with gabapentin 100 mg 3 times a day and clonazepam 0.5 mg twice a day from Dr. Wilcox's office. Patient denies any side effects from this medication. She states this medication does help her pain symptoms. Her Fish is [id number]. Its been reviewed and appropriate. Review of Systems: General: No recent weight changes, no fever, no sleep disturbances Respiratory: No cough, no shortness of air, no recurring pulmonary infections Cardiovascular/peripheral vascular: No chest pain, no palpitations, no edema, no shortness of breath Gastrointestinal: No new onset incontinence, normal bowel movements reported Genitourinary: No new onset incontinence Musculoskeletal: Low back pain Psychiatric: [Normal mood/affect] Neurological: [Denies weakness in extremities], [denies balance issues] Objective:: Physical Exam: General: Alert and oriented x3, no acute distress, pleasant and cooperative Lungs: Respirations even and unlabored, symmetrical chest expansion Eyes: PERRL Musculoskeletal: Flexion and extension of lumbar [spine] somewhat guarded secondary to pain, [antalgic gait noted] Neurological: Speech clear, no gross sensory deficit ORT score updated with minimal risk of 1 Assessment:: Degenerative disc disease of lumbar spine with lumbar radiculopathy symptoms, low back pain, sacroiliitis Plan:: Patient has had significant pain relief following her bilateral SI injections and at this time does not need any further injective therapy. Patient will return to clinic in 1 month for reevaluation of symptoms and follow-up. Patient has been instructed to contact the clinic with any concerns before the next appointment. Dr. Robbins has reviewed this note and agrees with this plan of care. This note was dictated using voice recognition software and make contain errors or omissions. [facility] Disclaimer: The information contained in this section may have been updated after the patient was seen, as this information can be updated by other users. Medical History Arthritis COPD (chronic obstructive pulmonary disease) DDD (degenerative disc disease), lumbar GERD (gastroesophageal reflux disease) Surgical History H/O: hysterectomy History of colonoscopy Family History Other Family history of myocardial infarction Social History Smoking Status: Current every day smoker tobacco type: cigarettes packs per day: 1 alcohol intake: never substance use type: denies use current occupational status: retired Travel in the last 8 weeks: None household members: family housing: house current occupation: caregiver current occupational exposures/hazards: Yes caffeine: Yes
== END ==
PROVIDERS: PCP Emergency Medicine; Visit Provider Nurse Practitioner Family
DX: M51.16 Intervertebral disc disorders with radiculopathy, lumbar region (principal); M46.1 Sacroiliitis, not elsewhere classified
CPT/HCPCS: 99212; G0463

== ENCOUNTER → 2022-11-27 14:56 | Outpatient (POV) | payer OTHER, SELFPAY ==
--- NOTE | 2022-11-27 15:02 | EXP.PAIN.SOA ---
[facility] Pain Management SOAP Note Subjective:: Patient is a pleasant 62-year-old female who presents today for follow-up. We are currently treating the patient for degenerative disc disease of the lumbar spine with lumbar radiculopathy symptoms, low back pain, sacroiliitis. Today she rates her pain a 5 out of 10. Patient denies any new trauma or injury. Patient states that her previous SI injections have still been giving additional relief however she has not been feeling the best in regards to her heart and lungs. Patient states that her primary care doctor is scheduling her to see Dr. Hart coming up. Patient also states that she was seen Dr. Benito for her respiratory issues however she has not had a recent visit with them. Patient does state that she does plan to follow-up in his office as well. Patients last bilateral SI injections in September provided at least 60% improvement. At this time she states she still has been getting additional relief and does not need any additional injective therapy. Patient is currently managed with gabapentin 100 mg 3 times a day and clonazepam 0.5 mg twice a day from Dr. Wilcox's office. Patient denies any side effects from these medications. Her Fish is [id number]. Its been reviewed and appropriate. Review of Systems: General: No recent weight changes, no fever, no sleep disturbances Respiratory: No cough, no shortness of air, no recurring pulmonary infections Cardiovascular/peripheral vascular: No chest pain, no palpitations, no edema, no shortness of breath Gastrointestinal: No new onset incontinence, normal bowel movements reported Genitourinary: No new onset incontinence Musculoskeletal: Low back pain Psychiatric: [Normal mood/affect] Neurological: [Denies weakness in extremities], [denies balance issues] Objective:: Physical Exam: General: Alert and oriented x3, no acute distress, pleasant and cooperative Lungs: Respirations even and unlabored, symmetrical chest expansion Eyes: PERRL Musculoskeletal: Flexion and extension of lumbar [spine] somewhat guarded secondary to pain, [antalgic gait noted] Neurological: Speech clear, no gross sensory deficit Assessment:: Degenerative disc disease of lumbar spine with lumbar radiculopathy symptoms, low back pain, sacroiliitis Plan:: Patient is currently experiencing some additional symptoms related to her heart and lungs. Patient is planning on scheduling follow-up visits with both Dr. Hart and Dr. Benito in the future. Patient will return to our clinic in 3 months for reevaluation of symptoms and follow-up. Patient has been instructed to contact the clinic with any concerns before the next appointment. Dr. Robbins has reviewed this note and agrees with this plan of care. This note was dictated using voice recognition software and make contain errors or omissions. [facility] Disclaimer: The information contained in this section may have been updated after the patient was seen, as this information can be updated by other users. Medical History Arthritis COPD (chronic obstructive pulmonary disease) DDD (degenerative disc disease), lumbar GERD (gastroesophageal reflux disease) Surgical History H/O: hysterectomy History of colonoscopy Family History Other Family history of myocardial infarction Social History Smoking Status: Current every day smoker tobacco type: cigarettes packs per day: 1 alcohol intake: never substance use type: denies use current occupational status: retired Travel in the last 8 weeks: None household members: family housing: house current occupation: caregiver current occupational exposures/hazards: Yes caffeine: Yes
[2022-11-27 15:11] VITALS: BP 133/79; PULSE 87; RESP 18; O2SAT 97; BMI 21.4
== END ==
PROVIDERS: PCP Emergency Medicine; Visit Provider Nurse Practitioner Family
DX: M51.16 Intervertebral disc disorders with radiculopathy, lumbar region (principal); M54.50 Low back pain, unspecified; M46.1 Sacroiliitis, not elsewhere classified
CPT/HCPCS: 99212; G0463

== ENCOUNTER → 2022-12-14 09:43 | Outpatient (CLI) | payer OTHER, SELFPAY ==
[2022-12-14 10:17] LABS: Basophils # 0.1 K/mm3 (0-0.2); Basophils % 0.8 % (0.1-2.0); Eosinophils # 0.2 K/mm3 (0.0-0.4); Eosinophils % 1.5 % (0.1-12.0); Hematocrit 45.3 % (37.0-47.0); Hemoglobin 14.4 g/dL (12.2-16.2); Lymphocytes # 2.8 K/mm3 (0.7-4.5); Lymphocytes % 23.8 % (10-50); Mean Corpuscular HGB Conc 31.8 g/dL (31.8-35.4); Mean Corpuscular Hemoglobin 29.4 pg (27.0-31.2); Mean Corpuscular Volume 92.2 fl (81-99); Mean Platelet Volume 9.2 fl (7.4-10.4); Monocytes % 8.3 % (1.7-9.3); Neutrophils # 7.7 K/mm3 (1.8-7.8); Neutrophils % 65.6 % (37.0-80.0); Platelet Count 354 K/mm3 (142-424); Red Blood Count 4.91 M/mm3 (4.20-5.40); Red Cell Distribution Width 15.2 % (11.5-17.5); White Blood Count 11.7 K/mm3 (4.8-10.8)
[2022-12-14 11:25] LABS: Alanine Aminotransferase 19 U/L (12-78); Albumin Level 4.3 g/dl (3.5-5.0); Alkaline Phosphatase 94 U/L (38-126); Anion Gap 8.2 mEq/L (5-15); Aspartate Amino Transferase 22 U/L (14-36); Bilirubin,Direct 0.3 mg/dl (0.0-0.4); Bilirubin,Indirect 0.2 mg/dL (0.0-0.9); Bilirubin,Total 0.5 mg/dl (0.2-1.3); Bilirubin,Unconjugated 0.2 mg/dL (0.0-1.1); Blood Urea Nitrogen 15 mg/dl (7-17); Calcium 9.3 mg/dl (8.4-10.2); Carbon Dioxide 27 mmol/L (22.0-30.0); Chloride 106 mmol/L (98-107); Chol/HDL Ratio 2.4 (1-3.5); Cholesterol 184 mg/dl (140-200); Estimated Glomerular Filt Rate 72 ml/min (>60); GFR (African American) 88 ML/MIN (>60); Glucose 80 mg/dl (74-100); HDL Cholesterol 76 mg/dl (40-60); Potassium 4.2 mmoL/L (3.5-5.1); Sodium 137 mmol/L (136-145); Total Protein,Serum 6.9 g/dl (6.3-8.2); Triglycerides 142 mg/dl (30-150); VLDL Cholesterol 28 mg/dL (0-40)
[2022-12-14 11:37] LABS: Direct LDL Cholesterol 77.34 mg/dL (100-129)
[2022-12-14 11:43] LABS: Free T4 (Free Thyroxine) 0.89 ng/dl (0.78-2.19)
[2022-12-14 11:57] LABS: Thyroid Stimulating Hormone 4.59 uIU/mL (0.465-4.68)
== END ==
PROVIDERS: PCP Emergency Medicine; Visit Provider Nurse Practitioner
DX: R06.09 Other forms of dyspnea (principal); R07.89 Other chest pain; I63.9 Cerebral infarction, unspecified; J44.9 Chronic obstructive pulmonary disease, unspecified; K21.9 Gastro-esophageal reflux disease without esophagitis; R53.83 Other fatigue; R94.31 Abnormal electrocardiogram [ECG] [EKG]; I11.9 Hypertensive heart disease without heart failure; E11.9 Type 2 diabetes mellitus without complications; Z72.0 Tobacco use
CPT/HCPCS: 36415; 80048; 80061; 80076; 84439; 84443; 85025

== ENCOUNTER → 2022-12-27 10:42 | Outpatient (CLI) | payer OTHER, SELFPAY ==
--- NOTE | 2022-12-27 | CA_ITS ---
APPROVED REPORT Exam: Pharmacologic Technologist: Heather Paez Ht: 5 ft 4 in Wt: 126 lbs BSA: 1.61 m2 HR: 72 bpm BP: 121/72 mmHg Indications: Chest pain Medical History Medications: Levothyroxine,,,,, Gabapentin,,,,, Pantoprazole,,,,, Atorvastatin,,,,, Escitalopram,,,,, Duoneb,,,,, SyMBICORT,,,,, Albuterol,,,,, Montelukast,,,,, KloNOPIN,,,,, Vitamin D2,,,,, Quetiapine,,,,, Stress Test Details Test: LEXISCAN HR Resting HR: 75 bpm Max Heart Rate (APMHR): 157.529283 bpm Max HR Achieved: 98 bpm Target HR (85% APMHR): 133.274892 bpm % of APMHR: 62.42 Recovery HR: 81 bpm BP Resting BP: 121.0/72.0 mmHg Max BP: 130.0/58.0 mmHg Recovery BP: 113.0/60.0 mmHg ECG Resting ECG: Normal sinus rhythm Clinical Exercise duration: 04:12 min Highest Stage Achieved: Exercise capacity: 1.0 METs Stress ECG Conclusion Symptoms: Shortness of air, mild stomach and head discomfort. No chest pain. Arrhythmias/Ectopy: Rare PAC ST-T Changes: No significant changes Conclusion: Unremarkable Lexiscan stress. Myoview images reported separately. Test Summary REST . . . . . . . Resting REST 05:19 . . 75 . 121/ 72 . . Stage 1 . . . . . . . Myoview Injected Stage 1 01:00 . . 95 . . . . Stage 2 01:00 . . 96 . 118/ 73 . . Stage 3 01:00 . . 91 . 109/ 55 . . Stage 4 01:00 . . 87 . 130/ 58 . . Stage 4 01:12 . . 82 . 130/ 58 . Stop exercise at 04:12 RECOVERY 01:00 . . 85 . . . . RECOVERY 02:00 . . 85 . 114/ 60 . . RECOVERY 03:00 . . 80 . 113/ 60 . . RECOVERY 03:17 . . 82 . 113/ 60 . . Electronically signed by : Abel Mesa MD 12/27/2022 14:45:21
--- NOTE | 2022-12-27 10:42 | CA_ITS ---
APPROVED REPORT EXAM: Comprehensive 2D, Doppler, and color-flow Echocardiogram Servomechanism Assembler: Farhana Bellamy CRT Ht: 5 ft 4 in Wt: 126lbs BSA: 1.61 BP: 113/64 mmHg Indications: Abnormal ECG, Chest Pain, COPD, Shortness of Breath, GERD 2D Dimensions LVOT 1.98 cm (M/F) 1.5-2.5 LA Volume 25.70 mL LA Volume Index 15.60 mL/m2 (M/F) 16-34 M-Mode Dimensions RVDd 2.91 cm (0.9-2.6) LA Diam 2.89 cm (1.9-4.0) LVDd 3.72 cm (3.5-5.7) Ao Diam 3.63 cm (2.0-3.7) LVDs 2.32 cm (3.5-5.7) IVSd 1.47 cm (0.6-1.1) PWd 0.66 cm (0.6-1.1) EF (Teich) 68.60% FS 37.60% EDV (Teich) 58.90 mL TAPSE 1.82 (<1.7) ESV (Teich) 18.50 mL LV Diastology E Decel Time 250.00 (160-240 msec) E/A Ratio 0.79 MED E' 7.30 (< 7 cm/sec) MED A' 9.80 cm/s E'/MED E' Ratio 8.10 (>14) LAT E' 9.20 (<10 cm/sec) LAT A' 13.30 cm/s E/LAT E' Ratio 6.42 (>14) Aortic Valve AO Peak GR. 8.40 mmHg Mitral Valve MV A Velocity 75.00 (40-130 cm/s) E/A Ratio 0.79 MV Decel. Time 250.00 (160-240 ms) Pulmonary Valve PV Peak Velocity 145.00 (50-150 cm/s) Tricuspid Valve TR P. Velocity 241.00 cm/s RAP Estimate 10.00 mmHg RVSP 33.20 mmHg Left Ventricle Left atrium is mildly enlarged, left ventricle is normal size mild concentric left ventricular hypertrophy, estimated ejection fraction 55% with no regional wall motion abnormality, grade 1 diastolic dysfunction seen without tissue Doppler evidence of raise left atrial pressure. Right Ventricle Right atrium and right ventricular normal size and contractility. Aortic Valve Aortic valve is minimally thickened and calcified without aortic stenosis aortic insufficiency. Mitral Valve Mitral valve is grossly normal, there is trace mitral regurgitation, Tricuspid Valve Tricuspid valve grossly normal, there is trace tricuspid regurgitation, tricuspid regurgitation jet velocity is inadequate for calculation of the right ventricular systolic pressure. Pulmonic Valve Pulmonic valve is poorly visualized. Great Vessels Aortic root is normal size. Inferior vena cava is normal size with normal inspiratory collapse. Pericardium No significant pericardial effusion noted. Conclusion 1. Mildly enlarged left atrium, normal left ventricular size mild concentric left ventricular hypertrophy, estimated ejection fraction 55% with no regional wall motion abnormality, grade 1 diastolic dysfunction seen without tissue Doppler evidence of raise left atrial pressure. 3. Trace mitral and tricuspid regurgitation. 3. No significant pericardial effusion. 4. Inferior vena cava is normal size with normal inspiratory collapse. Electronically signed by : Abel Mesa MD 12/28/2022 05:54:49
--- NOTE | 2022-12-27 11:14 | NM_ITS ---
APPROVED REPORT Exam: Nuclear Stress Test Indication: chest pain..palpitations..syncope..fatigue Patient Location: Outpatient Stress Tech: Heather Paez [place] Tech:LANETTE Pastor RT(R)(N) Ht: 5 ft 4 in Wt: 120 lbs Bra Size: b HR: 75 bpm BP: 121/72 mmHg BSA: 1.57 m2 TID: 0.95 BMI: 20.5 History: chest pain..palpitations..syncope..fatigue Procedure: Patient received 0.4 mg of intravenous Lexiscan, resting heart rate 75 bpm, resting blood pressure 121/72 mmHg, with Lexiscan maximum heart rate achieved was 98 bpm which is Less than 85 % of the maximum predicted heart rate and blood pressure was 130/58 mmHg. With Lexiscan, patient denied any complaint of chest pain. Electrocardiogram Resting electrocardiogram shows sinus rhythm, with the Lexiscan there is less than 1.[address] segment depression noted from the baseline EKG. The EKG portion of the Lexiscan is nondiagnostic. Cardiac Stress and Resting SPECT Images: Cardiac Stress and Resting SPECT images were obtained using technetium 99m Myoview 28.0 mCi stress and 10.56 mCi at rest. Gated SPECT analysis of segmental wall motion and calculation of the ejection fraction also done. Prone images were also obtained. Cardiac stress and rest SPECT images show uniform myocardial activity without segmental perfusion abnormality, computer derived ejection fraction is over 65% with no regional wall motion abnormality, right ventricle is normal size and contractility. Conclusion: 1. The EKG portion of the Lexiscan is nondiagnostic. 2. No scintigraphic evidence of reversible ischemia seen, computer derived ejection fraction over 65% with no regional wall motion abnormality, right ventricle is normal size and contractility. 3. Normal Lexiscan Myoview study. Electronically signed by : Abel Mesa MD 12/27/2022 14:49:14
== END ==
PROVIDERS: PCP Emergency Medicine; Visit Provider Nurse Practitioner
DX: R06.09 Other forms of dyspnea (principal); R07.89 Other chest pain; R53.83 Other fatigue; J44.9 Chronic obstructive pulmonary disease, unspecified; K21.9 Gastro-esophageal reflux disease without esophagitis; R94.31 Abnormal electrocardiogram [ECG] [EKG]; Z72.0 Tobacco use
CPT/HCPCS: 78452; 93017; 93306; A9502; J2785

== ENCOUNTER → 2023-01-23 13:46 | Outpatient (CLI) | payer OTHER, SELFPAY ==
[2023-01-23 13:40] LABS: Benzodiazepines Screen,Urine Negative ng/ml (<200)
[2023-01-23 13:41] LABS: Amphetamine/Metha Screen,Urine Negative ng/ml (<1000)
[2023-01-23 13:42] LABS: Barbiturates Screen,Urine Negative ng/ml (<200); Cannabinoid Screen,Urine Negative ng/ml (<50)
[2023-01-23 13:43] LABS: Cocaine Screen,Urine Negative ng/ml (<300); Methadone Screen,Urine Negative ng/ml (<300)
[2023-01-23 13:44] LABS: Opiate Screen,Urine Negative ng/ml (<300)
[2023-01-23 13:45] LABS: Phencyclidine Screen,Urine Negative ng/ml (<25)
== END ==
PROVIDERS: PCP Emergency Medicine; Visit Provider Emergency Medicine
DX: M54.16 Radiculopathy, lumbar region (principal)
CPT/HCPCS: 80305

== ENCOUNTER → 2023-01-23 14:33 | Outpatient (CLI) | payer OTHER, SELFPAY | PROVIDERS: PCP Emergency Medicine; Visit Provider Emergency Medicine | DX: M54.16 Radiculopathy, lumbar region (principal) ==

== ENCOUNTER → 2023-01-31 13:23 | Outpatient (CLI) | payer OTHER, SELFPAY ==
[2023-01-31 15:48] LABS: Anion Gap 13.9 mEq/L (5-15); Blood Urea Nitrogen 9 mg/dl (7-17); Calcium 9.3 mg/dl (8.4-10.2); Carbon Dioxide 29 mmol/L (22.0-30.0); Chloride 102 mmol/L (98-107); Estimated Glomerular Filt Rate 85 ml/min (>60); GFR (African American) 102 ML/MIN (>60); Glucose 89 mg/dl (74-100); Potassium 4.9 mmoL/L (3.5-5.1); Sodium 140 mmol/L (136-145)
== END ==
PROVIDERS: PCP Emergency Medicine; Visit Provider Nurse Practitioner
DX: R06.09 Other forms of dyspnea (principal); J44.9 Chronic obstructive pulmonary disease, unspecified; K21.9 Gastro-esophageal reflux disease without esophagitis; R53.83 Other fatigue; Z72.0 Tobacco use
CPT/HCPCS: 36415; 80048

== ENCOUNTER → 2023-04-09 06:55 | Outpatient (CLI) | payer OTHER, SELFPAY ==
--- NOTE | 2023-04-09 07:07 | CT_ITS ---
FINAL REPORT CLINICAL HISTORY: lung cancer screening CURRENT SMOKER 1PPD X40 YEARS COMPARISON: 02/01/2022 FINDINGS: CTDI vol (mGy): 2.90 DLP: 109.[address] images of the chest were obtained using the low-dose protocol for screening. There is no evidence of mediastinal or hilar mass or adenopathy. No axillary mass or adenopathy is identified. There is mild emphysema and mild scarring. Multiple calcified granulomas are seen. 5 mm nodule in the medial left upper lobe on image 30 is stable from prior exam. There is also a 2 mm right lower lobe nodule, also stable, seen on image 57. Previously seen 7 mm nodule in the lateral right middle lobe is no longer visualized. Limited imaging of the upper abdomen demonstrates an 18 mm mass in the lateral segment of the left hepatic lobe, unchanged from prior exam. This is nonspecific but favored benign. IMPRESSION: Stable pulmonary nodules as above. Lung RADS category 2. Recommend 12 month followup low-dose CT for further evaluation. Reviewed, Interpreted and Dictated by Ryan Montiel III, MD Transcribed by Jordyn Sands Authenticated and [facility]
== END ==
PROVIDERS: PCP Emergency Medicine; Visit Provider Internal Medicine Pulmonary Disease
DX: Z87.891 Personal history of nicotine dependence (principal); Z12.2 Encounter for screening for malignant neoplasm of respiratory organs; R06.02 Shortness of breath
CPT/HCPCS: 71271; 94060; 94618; 94726; 94729

== ENCOUNTER → 2023-07-03 22:44 | Outpatient (CLI) | payer OTHER, SELFPAY ==
[2023-07-03 17:21] LABS: Amphetamine/Metha Screen,Urine Negative ng/ml (<1000)
[2023-07-03 17:23] LABS: Barbiturates Screen,Urine Negative ng/ml (<200); Cannabinoid Screen,Urine Negative ng/ml (<50)
[2023-07-03 17:24] LABS: Benzodiazepines Screen,Urine Negative ng/ml (<200)
[2023-07-03 17:25] LABS: Cocaine Screen,Urine Negative ng/ml (<300); Opiate Screen,Urine Negative ng/ml (<300)
[2023-07-03 17:26] LABS: Methadone Screen,Urine Negative ng/ml (<300)
[2023-07-03 17:27] LABS: Phencyclidine Screen,Urine Negative ng/ml (<25)
== END ==
PROVIDERS: PCP Emergency Medicine; Visit Provider Emergency Medicine
DX: M54.16 Radiculopathy, lumbar region (principal)
CPT/HCPCS: 80305

== ENCOUNTER → 2023-07-18 07:52 | Outpatient (CLI) | payer OTHER, SELFPAY ==
--- NOTE | 2023-07-18 07:52 | MR_ITS ---
FINAL REPORT CLINICAL HISTORY: back pain, left hip pain COMPARISON: 08/15/2022 FINDINGS: Multiplanar MR imaging of the lumbar spine was performed without contrast. On the sagittal T2-weighted images, disc degeneration is seen at multiple levels. There are endplate changes at L4-5. The vertebral alignment is normal. There is no evidence of fracture. The conus has an unremarkable appearance. L1-2: An annular disc bulge is present. There is no significant canal stenosis or neural foraminal narrowing. L2-3: An annular bulge is present with mild bilateral neural foraminal narrowing. L3-4: An annular bulge is present with mild bilateral neural foraminal narrowing. L4-5: An annular bulge is present. Facet arthropathy and osteophytes are present. There is moderate bilateral neural foraminal narrowing. L5-S1: Facet arthropathy is present. There is no significant canal stenosis or neural foraminal narrowing. IMPRESSION: Multilevel degenerative disc disease and spondylosis. Findings are stable since prior. Reviewed, Interpreted and Dictated by Ryan Montiel III, MD Transcribed by Carol Velasquez Authenticated and [facility]
--- NOTE | 2023-07-18 08:55 | XR_ITS ---
FINAL REPORT CLINICAL HISTORY: Osteoporosis screening COMPARISON: None FINDINGS: Using L1-4, the bone mineral density of the spine is 0.787 g/cm2, corresponding to T-score of -2.4, consistent with low bone density. Using the left hip, the bone mineral density of the femoral neck is 0.593 g/cm2, corresponding to a T-score of -2.9, consistent with osteoporosis. Using the right hip, the bone mineral density of the femoral neck is 0.596 g/cm2, corresponding to a T-score of -2.3, consistent with low bone density. FRAX not reported because T-score for left hip below -2.5. NOTE: T-score: Standard deviation compared with peak bone mass of young adult mean. *Following the recommendations of the International Society of Bone densitometry, classification of hip BMD is based on the lower of two T-scores; total hip or femoral neck. IMPRESSION: Diminished bone mineral density consistent with osteoporosis. Reviewed, Interpreted and Dictated by Ryan Montiel III, MD Transcribed by Collette Segura Authenticated and [facility]
== END ==
PROVIDERS: PCP Emergency Medicine; Visit Provider Emergency Medicine
DX: M54.50 Low back pain, unspecified (principal); M81.0 Age-related osteoporosis without current pathological fracture
CPT/HCPCS: 72148; 76376; 77080

== ENCOUNTER → 2023-07-31 23:26 | Outpatient (CLI) | payer OTHER, SELFPAY ==
[2023-07-31 23:06] LABS: Amphetamine/Metha Screen,Urine Negative ng/ml (<1000)
[2023-07-31 23:14] LABS: Barbiturates Screen,Urine Negative ng/ml (<200)
[2023-07-31 23:18] LABS: Cannabinoid Screen,Urine Negative ng/ml (<50)
[2023-07-31 23:19] LABS: Benzodiazepines Screen,Urine Negative ng/ml (<200)
[2023-07-31 23:21] LABS: Methadone Screen,Urine Negative ng/ml (<300)
[2023-07-31 23:22] LABS: Cocaine Screen,Urine Negative ng/ml (<300)
[2023-07-31 23:23] LABS: Opiate Screen,Urine Negative ng/ml (<300); Phencyclidine Screen,Urine Negative ng/ml (<25)
== END ==
PROVIDERS: PCP Emergency Medicine; Visit Provider Emergency Medicine
DX: Z79.899 Other long term (current) drug therapy (principal)
CPT/HCPCS: 80305

== ENCOUNTER → 2023-08-07 10:25 | Outpatient (CLI) | payer OTHER, SELFPAY ==
--- NOTE | 2023-08-07 10:25 | MM_ITS ---
PROCEDURE INFORMATION: Exam: MG Bilateral Screening 3D Mammography Exam date and time: 08/07/2023 10:39 AM Age: 62 years old Clinical indication: Screening examination TECHNIQUE: Imaging protocol: Bilateral Screening tomosynthesis and 2D mammography including computer-aided detection (CAD) when performed. COMPARISON: No relevant prior studies available. FINDINGS: MAMMOGRAPHY: Breast composition: There are scattered areas of fibroglandular density. Mass: None. Architectural distortion: None. Calcifications: No suspicious calcifications. Asymmetric density: None. Skin thickening: None. Axillary adenopathy: None. IMPRESSION: No mammographic evidence of malignancy. Annual screening is recommended unless otherwise clinically indicated. ASSESSMENT: BI-RADS Category 1: Negative
== END ==
PROVIDERS: PCP Emergency Medicine; Visit Provider Emergency Medicine
DX: Z12.31 Encounter for screening mammogram for malignant neoplasm of breast (principal)
CPT/HCPCS: 77063; 77067

== ENCOUNTER 2023-09-24 12:51 | Day surgery (SDC) | payer OTHER, SELFPAY ==
[2023-09-24] VITALS (10 sets, daily range): BP systolic 110–151; BP diastolic 61–88; PULSE 64–73; RESP 16–18; O2SAT 94–100; BMI 21.9
--- NOTE | 2023-09-24 12:58 | IR_ITS ---
APPROVED REPORT Patient Location: Outpatient Link Trainer Mechanic: LANETTE Suggs RT (R) PROCEDURES Left heart catheterization Left ventriculogram Selective coronary angiogram INDICATION Unstable angina Informed consent was obtained prior to the procedure. COMPLICATIONS None Estimated Blood Loss: Less than 10 mls TECHNIQUE One percent lidocaine used to anesthetize the right anterior aspect of the wrist. The right radial artery was accessed via the Seldinger technique. A 6 Panamanian sheath was placed in the right radial artery. 2.5 mg of Verapamil, 800 mcg of nitroglycerin, 1mg Lidocaine and 5000 U Heparin were given through the arterial sheath. The papa catheter was also used to perform left heart catheterization, left ventriculogram and selective coronary angiogram. At the end of the procedure the sheath was removed good hemostasis was achieved using Traclet band, patient was transferred to the postop holding area in stable condition. ANGIOGRAPHIC RESULTS The left main artery Normal The left anterior descending artery Mild proximal and mid vessel 10% luminal irregularities The circumflex artery Mild proximal and mid vessel 10% luminal irregularities The right coronary artery Is a dominant vessel has a mid vessel 30 to 40% stenosis The LACEY ventriculogram reveals Normal 65% The left ventricular end-diastolic pressure 15 mmHg IMPRESSION Mild to moderate nonflow limiting disease in the mid dominant right coronary Normal ejection fraction Borderline LVEDP PLAN 1. Treatment of endothelial dysfunction 2. Medical management 3. Risk factor modification Electronically signed by : Chava Hart MD 09/24/2023 13:57:27
[2023-09-24 13:31] LABS: Basophils # 0.1 K/mm3 (0-0.2); Basophils % 0.7 % (0.1-2.0); Eosinophils # 0.2 K/mm3 (0.0-0.4); Eosinophils % 1.9 % (0.1-12.0); Hematocrit 45.6 % (37.0-47.0); Hemoglobin 15.2 g/dL (12.2-16.2); Lymphocytes # 3.9 K/mm3 (0.7-4.5); Lymphocytes % 38.6 % (10-50); Mean Corpuscular HGB Conc 33.3 g/dL (31.8-35.4); Mean Corpuscular Hemoglobin 29.6 pg (27.0-31.2); Mean Corpuscular Volume 88.9 fl (81-99); Monocytes # 0.7 K/mm3 (0.1-1.0); Monocytes % 6.5 % (1.7-9.3); Neutrophils # 5.2 K/mm3 (1.8-7.8); Neutrophils % 52.3 % (37.0-80.0); Platelet Count 427 K/mm3 (142-424); Red Blood Count 5.14 M/mm3 (4.20-5.40); Red Cell Distribution Width 14.1 % (11.5-17.5)
[2023-09-24 13:38] LABS: Chloride 109 mmol/L (98-107); Potassium 3.7 mmoL/L (3.5-5.1); Sodium 141 mmol/L (136-145)
[2023-09-24 13:41] LABS: Anion Gap 9.7 mEq/L (5-15); Blood Urea Nitrogen 7 mg/dl (7-17); Carbon Dioxide 26 mmol/L (22.0-30.0); Creatinine Clearance Estimated 52 mL/min (50-200); Estimated Glomerular Filt Rate 72 ml/min (>60); GFR (African American) 87 ML/MIN (>60)
[2023-09-24 13:42] LABS: Calcium 8.7 mg/dl (8.4-10.2); Glucose 96 mg/dl (74-100)
== END 2023-09-24 16:25 | disposition home or self-care (01) ==
PROVIDERS: PCP Physician Assistant; Visit Provider Internal Medicine
DX: I25.110 Atherosclerotic heart disease of native coronary artery with unstable angina pectoris (principal); Z79.899 Other long term (current) drug therapy; F17.210 Nicotine dependence, cigarettes, uncomplicated; J44.9 Chronic obstructive pulmonary disease, unspecified; R06.09 Other forms of dyspnea
CPT/HCPCS: 80048; 85025; 93458; 99152; C1725; C1769; J1644; Q9967

== ENCOUNTER → 2023-09-25 18:24 | Outpatient (CLI) | payer OTHER, SELFPAY ==
[2023-09-25 18:05] LABS: Amphetamine/Metha Screen,Urine Negative ng/ml (<1000); Barbiturates Screen,Urine Negative ng/ml (<200)
[2023-09-25 18:06] LABS: Cocaine Screen,Urine Negative ng/ml (<300)
[2023-09-25 18:07] LABS: Benzodiazepines Screen,Urine Negative ng/ml (<200)
[2023-09-25 18:08] LABS: Cannabinoid Screen,Urine Negative ng/ml (<50)
[2023-09-25 18:09] LABS: Phencyclidine Screen,Urine Negative ng/ml (<25)
[2023-09-25 18:10] LABS: Methadone Screen,Urine Negative ng/ml (<300); Opiate Screen,Urine Negative ng/ml (<300)
== END ==
PROVIDERS: PCP Nurse Practitioner Family; Visit Provider Nurse Practitioner Family
DX: Z79.899 Other long term (current) drug therapy (principal)
CPT/HCPCS: 80305

== ENCOUNTER 2023-10-22 23:47 | Outpatient (CLI) | payer OTHER, SELFPAY ==
[2023-10-22 22:22] LABS: Amphetamine/Metha Screen,Urine Negative ng/ml (<1000); Barbiturates Screen,Urine Negative ng/ml (<200); Benzodiazepines Screen,Urine Negative ng/ml (<200); Cocaine Screen,Urine Negative ng/ml (<300); Opiate Screen,Urine Negative ng/ml (<300); Phencyclidine Screen,Urine Negative ng/ml (<25)
[2023-10-22 22:30] LABS: Cannabinoid Screen,Urine Negative ng/ml (<50); Methadone Screen,Urine Negative ng/ml (<300)
== END 2023-10-22 23:59 ==
LOC: LAB.DROPOF 23:47
PROVIDERS: PCP Physician Assistant; Visit Provider Physician Assistant
DX: F41.9 Anxiety disorder, unspecified (principal)
CPT/HCPCS: 80307

== ENCOUNTER 2023-11-19 19:58 | Outpatient (CLI) | payer OTHER, SELFPAY ==
[2023-11-19 19:06] LABS: Basophils # 0.1 K/mm3 (0-0.2); Basophils % 0.9 % (0.1-2.0); Eosinophils # 0.1 K/mm3 (0.0-0.4); Eosinophils % 1.1 % (0.1-12.0); Hematocrit 43.2 % (37.0-47.0); Hemoglobin 14.2 g/dL (12.2-16.2); Lymphocytes # 4.5 K/mm3 (0.7-4.5); Lymphocytes % 43.9 % (10-50); Mean Corpuscular HGB Conc 32.8 g/dL (31.8-35.4); Mean Corpuscular Hemoglobin 29.5 pg (27.0-31.2); Mean Platelet Volume 10.3 fl (7.4-10.4); Monocytes # 0.8 K/mm3 (0.1-1.0); Neutrophils # 4.7 K/mm3 (1.8-7.8); Neutrophils % 46.1 % (37.0-80.0); Platelet Count 359 K/mm3 (142-424); Red Cell Distribution Width 14.6 % (11.5-17.5); White Blood Count 10.2 K/mm3 (4.8-10.8)
[2023-11-19 19:31] LABS: Chloride 105 mmol/L (98-107)
[2023-11-19 19:32] LABS: Potassium 4.1 mmoL/L (3.5-5.1); Sodium 139 mmol/L (136-145)
[2023-11-19 19:34] LABS: Alanine Aminotransferase 15 U/L (12-78); Alkaline Phosphatase 106 U/L (38-126); Anion Gap 11.1 mEq/L (5-15); Aspartate Amino Transferase 24 U/L (14-36); Bilirubin,Total 0.5 mg/dl (0.2-1.3); Blood Urea Nitrogen 10 mg/dl (7-17); Carbon Dioxide 27 mmol/L (22.0-30.0); Estimated Glomerular Filt Rate 72 ml/min (>60); GFR (African American) 87 ML/MIN (>60); Iron 57 ug/dL (37-170); Triglycerides 121 mg/dl (30-150); VLDL Cholesterol 24 mg/dL (0-40)
[2023-11-19 19:35] LABS: Albumin Level 4.3 g/dl (3.5-5.0); Albumin/Globulin Ratio 1.6 (1.1-1.8); Calcium 9.3 mg/dl (8.4-10.2); Cholesterol 196 mg/dl (140-200); Globulin 2.7 g/dL (1.3-3.2); Glucose 81 mg/dl (74-100); HDL Cholesterol 66 mg/dl (40-60)
[2023-11-19 19:45] LABS: Erythrocyte Sedimentation Rate 13 mm/hr (0-30); Total Iron Binding Capacity 372 ug/dL (265-497)
[2023-11-19 19:46] LABS: Direct LDL Cholesterol 92.39 mg/dL (100-129)
[2023-11-19 19:52] LABS: 25-OH Vitamin D, Total 27.6 ng/mL (30-100)
[2023-11-19 20:10] LABS: Ferritin 24.3 ng/ml (11.1-264)
[2023-11-19 20:20] LABS: C-Reactive Protein 0.5 mg/L (0-4)
[2023-11-19 20:46] LABS: Thyroid Stimulating Hormone 6.12 uIU/mL (0.465-4.68)
[2023-11-19 21:05] LABS: Vitamin B12 247 pg/mL (239-931)
[2023-11-21 13:31] LABS: Anti-Centromere B Antibodies <0.2 AI (0.0-0.9); Anti-DNA (DS) Ab Qn 33 IU/mL (0-9); Anti-Jo-1 <0.2 AI (0.0-0.9); Anti-Smith Antibody <0.2 AI (0.0-0.9); Antichromatin Antibodies 0.2 AI (0.0-0.9); Antiscleroderma-70 Antibodies <0.2 AI (0.0-0.9); RNP Antibodies 0.7 AI (0.0-0.9); Sjogren's Anti-SS-A <0.2 AI (0.0-0.9); Sjogren's Anti-SS-B <0.2 AI (0.0-0.9)
[2023-11-21 14:14] LABS: Anti-Cyclic Citrullinated Pept >250 units (0-19)
== END 2023-11-19 23:59 ==
LOC: LAB.DROPOF 19:58
PROVIDERS: PCP Physician Assistant; Visit Provider Physician Assistant
DX: R53.83 Other fatigue (principal); M25.50 Pain in unspecified joint; M54.16 Radiculopathy, lumbar region; M47.816 Spondylosis without myelopathy or radiculopathy, lumbar region; F41.9 Anxiety disorder, unspecified; E55.9 Vitamin D deficiency, unspecified; Z79.899 Other long term (current) drug therapy
CPT/HCPCS: 80053; 80061; 82306; 82607; 82728; 83540; 83550; 84443; 85025; 85651; 86140; 86200; 86225; 86235; 86431

== ENCOUNTER → 2023-11-26 08:51 | Outpatient (POV) | payer OTHER, SELFPAY ==
--- NOTE | 2023-11-26 09:18 | EXP.PAIN.OV ---
HPI Data of Consult Patient: new to practice Consult date: 11/26/23 Requesting Physician: Shagufta Shirley APRN Primary Care Provider: EVER Caicedo Consult Narrative Reason for consult: Low back pain, left groin pain History of present illness: Ms. Lee is a 63 year old female who presents today as a new patient. She is a referral from Alison Rodriguez's office. Today she rates her pain an 8 out of 10. Patient states the pain is only in her low back and occasional left groin. She describes this as a aching, throbbing sensation with occasional sharp shooting pains. She does state that the pain primarily stays all at her back and does not go into her legs. She does state that this been going on for more than 6 months unrelated to any specific trauma or injury. Patient does state that the pain is worse with certain movements such as bending, twisting or lifting. Patient does state that she recently just went to hot die picker her shoes and had shooting pains. Patient does state that the pain interferes with her ability perform activities of daily living such as cooking and cleaning. Patient denies any previous surgery. She states she has had injections in the past that did help. Patient is currently in physical therapy however states that she has not had any additional improvement. Patient does state that she is scheduled to go for her last physical therapy appointment today. Patient is currently managed with gabapentin 100 mg 3 times a day and clonazepam 0.5 mg 3 times a day from her primary care provider. Her Fish has been reviewed and is appropriate. CC: Shagufta Shirley APRN [facility] Disclaimer: The information contained in this section may have been updated after the patient was seen, as this information can be updated by other users. Medical History Age related osteoporosis Arthritis COPD (chronic obstructive pulmonary disease) COPD (chronic obstructive pulmonary disease) DDD (degenerative disc disease), lumbar Dyspnea on exertion GERD (gastroesophageal reflux disease) Lung nodule Smoking greater than 30 pack years Surgical History H/O: hysterectomy History of colonoscopy Family History Other Family history of myocardial infarction Social History (Updated 11/26/23 @ 09:02 by Lynda Anand RN) Smoking Status: Current every day smoker tobacco type: cigarettes packs per day: 1 alcohol intake: never substance use type: denies use current occupational status: employed Travel in the last 8 weeks: None household members: family housing: house current occupation: caregiver current occupational exposures/hazards: Yes caffeine: Yes Review of Systems Review of Systems Review of systems:: pertinent systems reviewed and negative unless documented below Review of systems (narrative): Review of Systems: General: No recent weight changes, no fever, no sleep disturbances Respiratory: No cough, no shortness of air, no recurring pulmonary infections Cardiovascular/peripheral vascular: No chest pain, no palpitations, no edema, no shortness of breath Gastrointestinal: No new onset incontinence, normal bowel movements reported Genitourinary: No new onset incontinence Musculoskeletal: Low back pain Psychiatric: [Normal mood/affect] Neurological: [Denies weakness in extremities], [denies balance issues] Meds Home Medications and Allergies Home Medications Medication Instructions Recorded Confirmed Type ergocalciferol (vitamin D2) 1,250 1,250 mcg PO WEEKLY SUPPLIMENT 09/18/22 11/19/23 History mcg (50,000 unit) capsule pantoprazole 40 mg tablet,delayed See Rx Instructions .Route 09/18/22 11/19/23 History release .COMPLEX STOMACH albuterol sulfate 90 mcg/actuation 2 puff inhalation Q6H PRN BREATHING 11/27/22 11/19/23 History aerosol inhaler escitalopram oxalate 20 mg tablet 20 mg PO DAILY MOOD 11/27/22 11/19/23 History ipratropium 0.5 mg-albuterol 3 mg 3 ml inhalation QID PRN shortness 01/25/23 11/19/23 Rx (2.5 mg base)/3 mL nebulization of breath or wheezing #90 mL soln umeclidinium 62.5 mcg-vilanterol 1 inh inhalation DAILY 90 days 02/14/23 11/19/23 Rx 25 mcg/actuation powdr for #180 ea inhalation (Anoro Ellipta) furosemide 40 mg tablet (Lasix) 40 mg PO DAILY #90 tabs 04/30/23 11/19/23 Rx quetiapine 25 mg tablet 25 mg PO DAILY 07/03/23 11/19/23 History bupropion HCl 75 mg tablet See Rx Instructions .Route 07/05/23 11/19/23 Rx .COMPLEX #60 tabs quetiapine 50 mg tablet See Rx Instructions .Route 07/05/23 11/19/23 Rx .COMPLEX #30 tabs aspirin 81 mg tablet,delayed 81 mg PO DAILY #30 tabs 09/24/23 11/19/23 Rx release isosorbide mononitrate 30 mg 30 mg PO DAILY 30 days #30 tabs 09/24/23 11/19/23 Rx tablet,extended release 24 hr metoprolol succinate 25 mg 25 mg PO DAILY #30 tabs 09/24/23 11/19/23 Rx tablet,extended release 24 hr (Toprol XL) nitroglycerin 0.4 mg sublingual 0.4 mg sublingual Q5M PRN chest 09/24/23 11/19/23 Rx tablet pain #30 tabs pitavastatin calcium 4 mg tablet 4 mg PO DAILY #30 tabs 09/24/23 11/19/23 Rx nicotine 21 mg/24 hr daily 1 patch transdermal Q24H #28 ea 09/25/23 11/19/23 Rx transdermal patch (Nicoderm CQ) atorvastatin 20 mg tablet (Lipitor) 20 mg PO DAILY #30 tabs 10/04/23 11/19/23 Rx famotidine 20 mg tablet (Pepcid) 20 mg PO DAILY #30 tabs 10/04/23 11/19/23 Rx sod picosulf 10 mg-magnes 3.5 175 ml PO DAILY 2 doses #350 mL 10/12/23 11/19/23 Rx gram-citric 12 gram/175 mL oral solution (Clenpiq) alendronate 70 mg tablet 70 mg PO WEEKLY osteoperosis #13 11/19/23 11/19/23 Rx tabs amitriptyline 25 mg tablet 25 mg PO HS #30 tabs 11/19/23 11/19/23 Rx gabapentin 100 mg capsule See Rx Instructions .Route 11/19/23 11/19/23 Rx .COMPLEX #90 caps New Prescriptions to Start Prescriptions: Allergies Allergy/AdvReac Type Severity Reaction Status Date / Time hydralazine Allergy Mild itching Verified 11/19/23 14:14 codeine Allergy Nausea Verified 11/19/23 14:14 Objective Narrative: Physical Exam: General: Alert and oriented x3, no acute distress, pleasant and cooperative Lungs: Respirations even and unlabored, symmetrical chest expansion Eyes: PERRL Musculoskeletal: Flexion and extension of lumbar [spine] somewhat guarded secondary to pain, [antalgic gait noted] positive Kemps test Neurological: Speech clear, no gross sensory deficit Additional findings Additional findings: FINDINGS: Multiplanar MR imaging of the lumbar spine was performed without contrast. On the sagittal T2-weighted images, disc degeneration is seen at multiple levels. There are endplate changes at L4-5. The vertebral alignment is normal. There is no evidence of fracture. The conus has an unremarkable appearance. L1-2: An annular disc bulge is present. There is no significant canal stenosis or neural foraminal narrowing. L2-3: An annular bulge is present with mild bilateral neural foraminal narrowing. L3-4: An annular bulge is present with mild bilateral neural foraminal narrowing. L4-5: An annular bulge is present. Facet arthropathy and osteophytes are present. There is moderate bilateral neural foraminal narrowing. L5-S1: Facet arthropathy is present. There is no significant canal stenosis or neural foraminal narrowing. IMPRESSION: Multilevel degenerative disc disease and spondylosis. Findings are stable since prior. Reviewed, Interpreted and Dictated by Ryan Montiel III, MD Transcribed by Carol Velasquez Authenticated and [facility] Assessment and Plan *Assessment and plan (1) Spondylosis of lumbar spine: Status: Chronic Category: Medical Code(s): M47.816 - Spondylosis without myelopathy or radiculopathy, lumbar region (2) Low back pain: Status: Acute Qualifiers: Chronicity: chronic Back pain laterality: bilateral Sciatica presence: without sciatica Qualified Code(s): M54.50 - Low back pain, unspecified; G89.29 - Other chronic pain Category: Medical Code(s): M54.50 - Low back pain, unspecified (3) Degenerative disc disease, lumbar: Status: Chronic Category: Medical Code(s): M51.36 - Other intervertebral disc degeneration, lumbar region (4) Lumbar radiculopathy: Status: Chronic Category: Medical Code(s): M54.16 - Radiculopathy, lumbar region (5) Lumbar facet arthropathy: Status: Acute Category: Medical Code(s): M47.816 - Spondylosis without myelopathy or radiculopathy, lumbar region Plan Patient is experiencing significant pain in her low back with limited range of motion and positive Kemps test. I have discussed with patient that she may benefit from pain lumbar medial branch block. Risk and benefits were discussed with the patient and she would like to proceed forward with this plan of care. Patient has tried and failed conservative therapy such as oral medication, heat and ice, topicals, physical therapy, at home stretching exercise for longer than 6 weeks. Patient is not on any blood thinners. I have discussed with the patient that if she does end up getting a successful block that we will plan on doing a repeat diagnostic block in the future with the plan to proceed forward with the lumbar ablation at a later date. Patient will be scheduled for a lumbar medial branch block bilaterally L3-L4 and L4-L5. Patient has been instructed to contact the clinic with any concerns before the next appointment. Dr. Robbins has reviewed this note and agrees with this plan of care. This note was dictated using voice recognition software and make contain errors or omissions.
[2023-11-26 09:30] VITALS: BP 107/71; PULSE 67; RESP 18; O2SAT 97; BMI 22.3
== END ==
LOC: SC.PAIN 08:52
PROVIDERS: PCP Physician Assistant; Visit Provider Nurse Practitioner Family
DX: G89.29 Other chronic pain; M51.16 Intervertebral disc disorders with radiculopathy, lumbar region; M47.896 Other spondylosis, lumbar region
CPT/HCPCS: 99202; G0463

== ENCOUNTER 2023-11-26 11:00 | Outpatient (RCR) | payer OTHER, SELFPAY ==
--- NOTE | 2023-11-05 09:44 | HMH.PTOPEV ---
PT Outpatient Evaluation Rehab PT Outpatient Evaluation Start: 11/05/23 08:35 Freq: Status: Active Protocol: Document 11/05/23 08:35 HARI (Rec: 11/05/23 09:44 HARI [id number]) E-signed By Shagufta Morley, PT Outpatient Therapy Subjective History Subjective History Pt is a 63 y/o female who reports insidious onset of left anterior hip pain 3-4 months ago. Pt reports sharp pain along the left anterior groin that often radiates to her knee. Pt denies numbness or tingling. Pt denies falls or trauma in the last 6 months . Pt denies having imaging of the L hip, states her MD ordered a MRI but her insurance denied it. Pt reports pain is aggravated by turning onto the left side when lying down, standing up from a low surface, prolonged sitting/standing/walking, and stair climbing. Pt reports some aching pain at rest. Pt states she has noticed popping of her left knee and hip that is often painful. Pt states her left hip catches at times too. Pt reports she has been using a SPC to assist with pain and prevent falls. 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 Medical History: Age related osteoporosis, Arthritis, COPD (chronic obstructive pulmonary disease), DDD (degenerative disc disease), Dyspnea on exertion, GERD ( gastroesophageal reflux disease), Lung nodule, Smoking greater than 30 pack years, chronic low back pain New diagnosis of cancer in past 12 No months? Chief Complaint Pain,Catches/Locks Symptom Type Ache,Sharp,Dull Symptoms Relieved By Rest/Positioning Symptoms Aggravated By Standing,Physical Activity, Twisting,Walking Prior Functional Limitations None Current Functional Limitations Housework,Dressing,Sleeping, Standing,Sitting,Squatting, Walking,Stairs Symptom Description Intermittent Level of pain today (0-10) 0 Pain scale - at its best (0-10) 0 Pain scale - at its worst (0-10) 8 Lumbopelvic Eval Range of Motion Lumbar Spine Active Flexion Range of 55 Motion (degrees) Lumbar Spine Active Extension Range of 25 Motion (degrees) Left Lumbar Spine Lateral Flexion Active 20 Range of Motion (degrees) Right Lumbar Spine Lateral Flexion 10 Active Range of Motion (degrees) Hip/Knee Eval Gait Observation General Gait Pattern Observation Antalgic Gait,Decrease Weight Bear (L) Assistive Device Assistive Devices Straight Cane Palpation Tenderness left Knee Palpation Overall Comment 1/4 TTP over L ASIS and hip flexor mm, no TTP noted of adductors Hip Palpation Findings Tenderness MMT Hip Flexion Strength Grade 4- Good- Hip Abduction Strength Grade 4- Good- Hip Adduction Strength Grade 4- Good- Hip Extension Strength Grade 4 Good Knee Extension Strength Grade 5 Normal Knee Flexion Strength Grade 5 Normal ROM Hip Flexion w/Knee Flexed Active Range 85 of Motion (degrees) Hip External Rotation Active Range of 30 Motion (degrees) Hip Internal Rotation Active Range of 28 Motion (degrees) Hip ROM Limitations Pain Special Tests Hip Scouring (Quadrant) Test Positive Left Lower Extremity Functional Index Activities Today, do you or would you have any difficulty at all with: a.Any of your usual work, housework or Moderate difficulty school activities b. Your usual hobbies, recreational or Quite a bit of difficulty sporting activities c. Getting into or out of the bath A little bit of difficulty d. Walking between rooms Moderate difficulty e. Putting on your shoes or socks Quite a bit of difficulty f. Squatting Quite a bit of difficulty g. Lifting an object, like a bag of Moderate difficulty groceries from the floor h. Performing light activities around Moderate difficulty your home i. Performing heavy activities around Moderate difficulty your home j. Getting into or out of a car Quite a bit of difficulty k. Walking 2 blocks Quite a bit of difficulty l. Walking a mile Quite a bit of difficulty m. Going up or down 10 stairs (about 1 Quite a bit of difficulty flight of stairs) n. Standing for 1 hour Quite a bit of difficulty o. Sitting for 1 hour Quite a bit of difficulty p. Running on even ground Quite a bit of difficulty q. Running on uneven ground Quite a bit of difficulty r. Making sharp turns while running fast Quite a bit of difficulty s. Hopping Quite a bit of difficulty t. Rolling over in bed A little bit of difficulty LEFI Score Lower Extremity Functional Index Score 29 Outpatient Therapy Assessment Impairments Problems/Impairmments Palpation Tenderness,Impaired Range of Motion,Impaired Strength,Impaired Gait Pattern ,Impaired Walking,Impaired Standing,Impaired Lifting, Impaired Dressing,Impaired Household Care,Impaired Stair Climbing,Impaired Squatting, Impaired Work Activities, Subjective C/O Pain,Impaired Self Care/Self Management Prognosis Rehab Potential Good Clinical Impression Consistent with Diagnosis Yes Short Term Goals Number of Weeks 3 Increase Range of Motion Yes: Improve L hip flex AROM to at least 95 Improve LEFI Score Yes: Improve score to 39/80 to improve overall QOL Decrease Subjective C/O Pain Yes: Improve pain at worst to 4/10 to improve overall QOL Improve Self Care/Self Management Yes Patient to be Ind w/ HEP Yes Smoke Jumper Supervisor Goals Number of Weeks 6 Increase Range of Motion Yes: Improve L hip AROM flex to 105, IR/ER to 35-40 Increase Strength Yes: Improve L hip strength to 4+/5 grossly to assist with function Improve Transfers Yes: perform sit to stand with pain 4/10 or less to decrease fall risk Improve Gait Pattern without Assistive Yes: proper gait mechanics Device with LRD to decrease fall risk Improve LEFI Score Yes: Improve score to 50/80 to improve overall QOL Decrease Subjective C/O Pain Yes: Improve pain at worst to 4/10 to improve overall QOL Outpatient Therapy Plan of Care Treatment Plan May Include Therapeutic Exercise Including Home Yes Exercise Program Manual Therapy Techniques Yes Neuromuscular Re-education Yes Therapeutic Activities to Return to Yes Previous Functional/Work Level Gait Training Yes ADL/Self Care Education Yes Dry Needling Yes Thermal Modalities Yes Electrical Stimulation Yes Ultrasound/Phonophoresis Yes Iontophoresis Yes Vasopneumatic Compression Pump Yes Massage Yes Eval/Re-Eval Yes Aquatic Therapy Yes Frequency Times per week 2 Duration Number of Weeks 4-6 Addendums This patient is a candidate for social No or vocational rehab? Patient/Guardian verbally acknowledges Yes understanding of treatment program and consents to further treatment? Patient/Guardian verbally acknowledges Yes understanding of diagnosis, prognosis and goals for treatment? Eval Complexity PT Charges 76376 - Low Complexity Shoulder/Elbow Eval Shoulder Objective Measurements Elbow Objective Measurements PHYSICIAN CERTIFICATION: I certify the specified therapy services for Carol Lee are required, authorized, and reviewed every 30 days.
== END 2023-11-26 12:00 | disposition home or self-care (01) ==
LOC: PT 11:00
PROVIDERS: PCP Physician Assistant; Visit Provider Physician Assistant
DX: M25.552 Pain in left hip (principal)
CPT/HCPCS: 97010; 97014; 97035; 97110; 97140; 97163; 97530; G0283

== ENCOUNTER 2023-12-17 11:35 | Outpatient (CLI) | payer OTHER, SELFPAY ==
[2023-12-18 14:48] LABS: HBsAg Screen Negative (Negative); HCV Ab Non Reactive (Non Reactive); Hep A Ab, IGM Negative (Negative); Hep B Core Ab, IgM Negative (Negative)
== END 2023-12-17 23:59 ==
LOC: LAB.DROPOF 11:36
PROVIDERS: PCP Physician Assistant; Visit Provider Physician Assistant
DX: R53.83 Other fatigue (principal)
CPT/HCPCS: 80074

== ENCOUNTER 2023-12-25 08:44 | Day surgery (SDC) | payer OTHER, SELFPAY ==
[2023-12-25 08:58] VITALS: BP 120/69; PULSE 83; RESP 20; TEMP 36.4; O2SAT 97; BMI 22.3
--- NOTE | 2023-12-25 09:23 | P.PCN_ITS ---
Procedure Date: 12/25/23 Time: 09:05 Anesthesiologist:: Kelby Mina CRNA Complications:: None Pre-procedure Diagnosis:: Degenerative disc lumbar spine multilevels. Lumbar radiculopathy. Lumbar spondylosis. Multilevel lumbar facet arthropathy. Post-procedure Diagnosis:: Same. Indications for Procedure:: Patient is a very pleasant 63-year-old female comes our clinic today for L3-4, L4-5 bilateral facet blocks/medial branch block. Patient reports low back pain that intensifies with standing and/or sitting for any length of time. Patient having difficulty with flexion, extension, left and right rotation of the lumbar spine. She rates her pain 8/10. Procedure Details:: Informed consent was obtained and the risk and benefits of the procedure was explained to the patient. Patient was taken to the procedure room where noninvasive monitors were placed, including noninvasive blood pressure cuff as well as pulse oximeter. The area over the lumbar spine was cleansed using chlorhexidine as a cleansing solution. I anesthetized the skin and subcutaneous tissues with 1% Lidocaine. I placed 22-gauge spinal needles into the facet joint/ medial branches of L3-L4, L4-L5 bilaterally. Needle placement was confirmed with fluoroscopy. After confirmation of needle placement, each site was injected with 1 mL of 1% lidocaine and 0.25 % Marcaine and 10 mg of Depo- Medrol. A total of 80 mg of depo medrol was used for bilateral medial branch blocks of L3-L4, L4-L5 bilaterally. Patient tolerated the procedure without difficulty. There were no complications. Plan and Disposition:: Patient was discharged without incident.
[2023-12-25 09:30] VITALS: BP 110/68; PULSE 78; RESP 18; O2SAT 97
[2023-12-25] MEDS: BUPIVACAINE 0.25% 10ML INJ 25 MG IJ (09:34)
[2023-12-25] MEDS: LIDOCAINE 1% 5ML PF VIAL 5 ML (09:34)
[2023-12-25 09:35] VITALS: BP 118/70; PULSE 79; RESP 18; O2SAT 95
[2023-12-25] MEDS: methylPREDNISolone ACETATE 80MG/ML VIAL 80 MG (09:35)
[2023-12-25 09:38] VITALS: BP 118/70; PULSE 79; RESP 18; O2SAT 95
== END 2023-12-25 09:30 | disposition home or self-care (01) ==
PROVIDERS: PCP Physician Assistant; Visit Provider Nurse Anesthetist, Certified Registered
DX: M47.896 Other spondylosis, lumbar region (principal); M51.16 Intervertebral disc disorders with radiculopathy, lumbar region
CPT/HCPCS: 64493; 64494; J1040

== ENCOUNTER 2024-01-09 10:15 | Outpatient (POV) | payer OTHER, SELFPAY ==
--- NOTE | 2024-01-09 10:39 | A.OFFVIS_ITS ---
[facility] Pain Management SOAP Note Subjective:: Patient is a pleasant 63-year-old female who presents today for follow-up of lumbar medial branch block bilaterally L3-L4 and L4-L5 on 12/25/2023. Today she rates her pain a 7 out of 10. Patient states that she has had at least 75% improvement following this injection and feels like it is still continuing to provide additional relief. Patient states she has been able to increase her activity with decreased pain and feels overall more functional. Patient is managed with gabapentin and clonazepam from an outside provider. Her Fish has been reviewed and is appropriate. Review of Systems: General: No recent weight changes, no fever, no sleep disturbances Respiratory: No cough, no shortness of air, no recurring pulmonary infections Cardiovascular/peripheral vascular: No chest pain, no palpitations, no edema, no shortness of breath Gastrointestinal: No new onset incontinence, normal bowel movements reported Genitourinary: No new onset incontinence Musculoskeletal: Low back pain Psychiatric: [Normal mood/affect] Neurological: [Denies weakness in extremities], [denies balance issues] Objective:: Physical Exam: General: Alert and oriented x3, no acute distress, pleasant and cooperative Lungs: Respirations even and unlabored, symmetrical chest expansion Eyes: PERRL Musculoskeletal: Flexion and extension of lumbar [spine] somewhat guarded secondary to pain, [antalgic gait noted] Neurological: Speech clear, no gross sensory deficit Assessment:: Degenerative disc disease of lumbar spine with lumbar radiculopathy symptoms, lumbar spondylosis, lumbar facet arthropathy Plan:: Patient has had significant improvement following her lumbar medial branch block and does not require any additional injection therapy at this time. Patient will return to clinic in 1 month for reevaluation of symptoms and plan of care. Patient has been instructed to contact the clinic with any concerns before the next appointment. Dr. Robbins has reviewed this note and agrees with this plan of care. This note was dictated using voice recognition software and make contain errors or omissions. [facility] Disclaimer: The information contained in this section may have been updated after the patient was seen, as this information can be updated by other users. Medical History Age related osteoporosis Arthritis COPD (chronic obstructive pulmonary disease) COPD (chronic obstructive pulmonary disease) DDD (degenerative disc disease), lumbar Dyspnea on exertion GERD (gastroesophageal reflux disease) Lung nodule Smoking greater than 30 pack years Surgical History H/O: hysterectomy History of colonoscopy Family History Other Family history of myocardial infarction Social History (Updated 12/25/23 @ 08:58 by Grace Leyva RN) Smoking Status: Current every day smoker tobacco type: cigarettes packs per day: 1 alcohol intake: never substance use type: denies use current occupational status: employed Travel in the last 8 weeks: None household members: family housing: house current occupation: caregiver current occupational exposures/hazards: Yes caffeine: Yes
[2024-01-09 13:02] VITALS: BP 121/66; PULSE 82; RESP 18; O2SAT 97; BMI 22.3
== END 2024-01-09 23:59 ==
LOC: SC.PAIN 10:15
PROVIDERS: PCP Physician Assistant; Visit Provider Nurse Practitioner Family
DX: M51.16 Intervertebral disc disorders with radiculopathy, lumbar region (principal); M47.26 Other spondylosis with radiculopathy, lumbar region
CPT/HCPCS: 99212; G0463

== ENCOUNTER 2024-02-04 09:34 | Outpatient (POV) | payer OTHER, SELFPAY ==
[2024-02-04 09:41] VITALS: BP 116/66; PULSE 84; RESP 16; O2SAT 98; BMI 22.3
--- NOTE | 2024-02-04 09:52 | EXP.PAIN.SOA ---
[facility] Pain Management SOAP Note Subjective:: Patient is a pleasant 63-year-old female who presents today for 1 month follow-up. Today she rates her pain a 6 out of 10. Patient did previously have a lumbar medial branch block bilaterally L3-L4 and L4-L5 back on December 24 that did provide at least 75%. She does state that she still feels like this injection is working well and that she has been able to increase her overall activities with increased function and decreased pain. Patient does state that currently she does not need anything additional from our office. She is prescribed gabapentin and clonazepam from an outside provider. Her Fish has been reviewed and is appropriate. Review of Systems: General: No recent weight changes, no fever, no sleep disturbances Respiratory: No cough, no shortness of air, no recurring pulmonary infections Cardiovascular/peripheral vascular: No chest pain, no palpitations, no edema, no shortness of breath Gastrointestinal: No new onset incontinence, normal bowel movements reported Genitourinary: No new onset incontinence Musculoskeletal: Low back pain Psychiatric: [Normal mood/affect] Neurological: [Denies weakness in extremities], [denies balance issues] Objective:: Physical Exam: General: Alert and oriented x3, no acute distress, pleasant and cooperative Lungs: Respirations even and unlabored, symmetrical chest expansion Eyes: PERRL Musculoskeletal: Flexion and extension of lumbar [spine] somewhat guarded secondary to pain, [antalgic gait noted] Neurological: Speech clear, no gross sensory deficit Assessment:: Degenerative disc disease of lumbar spine with lumbar radiculopathy symptoms, lumbar facet arthropathy, lumbar spondylosis Plan:: Patient continues to do well from her lumbar medial branch block and does not require any additional injection therapy at this time. Patient will return to clinic in 3 months for reevaluation of symptoms and plan of care. Patient has been instructed to contact the clinic with any concerns before the next appointment. Dr. Robbins has reviewed this note and agrees with this plan of care. This note was dictated using voice recognition software and make contain errors or omissions. [facility] Disclaimer: The information contained in this section may have been updated after the patient was seen, as this information can be updated by other users. Medical History Age related osteoporosis Lung nodule Smoking greater than 30 pack years Dyspnea on exertion DDD (degenerative disc disease), lumbar Arthritis COPD (chronic obstructive pulmonary disease) GERD (gastroesophageal reflux disease) COPD (chronic obstructive pulmonary disease) Surgical History History of colonoscopy H/O: hysterectomy Family History Other Family history of myocardial infarction Social History Smoking Status: Current every day smoker tobacco type: cigarettes packs per day: 1 alcohol intake: never substance use type: denies use current occupational status: other Travel in the last 8 weeks: None household members: family housing: house current occupation: caregiver current occupational exposures/hazards: Yes caffeine: Yes
== END 2024-02-04 23:59 ==
LOC: SC.PAIN 09:35
PROVIDERS: PCP Physician Assistant; Visit Provider Nurse Practitioner Family
DX: M51.16 Intervertebral disc disorders with radiculopathy, lumbar region (principal); M47.26 Other spondylosis with radiculopathy, lumbar region
CPT/HCPCS: 99212; G0463

== ENCOUNTER 2024-06-05 11:12 | Outpatient (POV) | payer OTHER, SELFPAY ==
--- NOTE | 2024-06-05 11:47 | A.OFFVIS_ITS ---
[facility] Disclaimer: The information contained in this section may have been updated after the patient was seen, as this information can be updated by other users. Medical History Age related osteoporosis Lung nodule Smoking greater than 30 pack years Dyspnea on exertion DDD (degenerative disc disease), lumbar Arthritis COPD (chronic obstructive pulmonary disease) GERD (gastroesophageal reflux disease) COPD (chronic obstructive pulmonary disease) Surgical History History of colonoscopy H/O: hysterectomy Family History Other Family history of myocardial infarction Social History Smoking Status: Current every day smoker tobacco type: cigarettes packs per day: 1 alcohol intake: never substance use type: denies use current occupational status: other Travel in the last 8 weeks: None household members: family housing: house current occupation: caregiver current occupational exposures/hazards: Yes caffeine: Yes PM Subjective & Objective Subjective Subjective:: Patient is a pleasant 63-year-old female who presents today for follow-up due to worsening pain. She does rate her pain a 10 out of 10. Patient does state that she had a fall yesterday and did do some abrasions to her right arm however denies any significant injury. She does state that she has been experiencing worsening pain in her low back that does radiate down to her entire right foot. She does describe it as an aching, throbbing sensation with tingling and just hurts. Patient denies any symptoms down her left leg. Patient does state that she is interested in injection therapy due to the worsening pain. Patient has tried oral medications along with heat and ice and topicals with no additional relief and does continue at home stretching exercise for longer than 12 weeks. Patient is prescribed gabapentin and clonazepam from an outside provider. Her Fish has been reviewed and is appropriate. Review of Systems: General: No recent weight changes, no fever, no sleep disturbances Respiratory: No cough, no shortness of air, no recurring pulmonary infections Cardiovascular/peripheral vascular: No chest pain, no palpitations, no edema, no shortness of breath Gastrointestinal: No new onset incontinence, normal bowel movements reported Genitourinary: No new onset incontinence Musculoskeletal: Low back pain, right leg pain Psychiatric: [Normal mood/affect] Neurological: [Denies weakness in extremities], [denies balance issues] Pain at rest (0-10 scale): 10 Objective Objective:: Physical Exam: General: Alert and oriented x3, no acute distress, pleasant and cooperative Lungs: Respirations even and unlabored, symmetrical chest expansion Eyes: PERRL Musculoskeletal: Flexion and extension of lumbar [spine] somewhat guarded secondary to pain, [antalgic gait noted] Neurological: Speech clear, no gross sensory deficit Has patient had previous pain injection?: No Conservative treatment options previously tried: Home exercise plan Length of treatment: Longer than 12 weeks Meds Home Medications and Allergies Home Medications ?Medication ?Instructions ?Recorded ?Confirmed ?Type pantoprazole 40 mg tablet,delayed See Rx Instructions .Route 09/18/22 05/12/24 History release .COMPLEX STOMACH albuterol sulfate 90 mcg/actuation 2 puff inhalation Q6H PRN BREATHING 11/27/22 05/12/24 History aerosol inhaler escitalopram oxalate 20 mg tablet 20 mg PO DAILY MOOD 11/27/22 05/12/24 History ipratropium 0.5 mg-albuterol 3 mg 3 ml inhalation QID PRN shortness 01/25/23 05/12/24 Rx (2.5 mg base)/3 mL nebulization of breath or wheezing #90 mL soln umeclidinium 62.5 mcg-vilanterol 1 inh inhalation DAILY 90 days 02/14/23 05/12/24 Rx 25 mcg/actuation powdr for #180 ea inhalation (Anoro Ellipta) bupropion HCl 75 mg tablet See Rx Instructions .Route 07/05/23 05/12/24 Rx .COMPLEX #60 tabs aspirin 81 mg tablet,delayed 81 mg PO DAILY #30 tabs 09/24/23 05/12/24 Rx release metoprolol succinate 25 mg 25 mg PO DAILY #30 tabs 09/24/23 05/12/24 Rx tablet,extended release 24 hr (Toprol XL) nitroglycerin 0.4 mg sublingual 0.4 mg sublingual Q5M PRN chest 09/24/23 05/12/24 Rx tablet pain #30 tabs famotidine 20 mg tablet (Pepcid) 20 mg PO DAILY #30 tabs 10/04/23 05/12/24 Rx amitriptyline 25 mg tablet 25 mg PO HS #30 tabs 11/19/23 05/12/24 Rx cholecalciferol (vitamin D3) 50 50 mcg PO DAILY #90 caps 11/28/23 05/12/24 Rx mcg (2,000 unit) capsule cyanocobalamin (vitamin B-12) 1,000 mcg IM QMONTH Vitamin B-12 11/28/23 05/12/24 Rx 1,000 mcg/mL injection solution Deficiency #100 mL ergocalciferol (vitamin D2) 1,250 1,250 mcg PO WEEKLY SUPPLIMENT #14 11/28/23 05/12/24 Rx mcg (50,000 unit) capsule caps levothyroxine 25 mcg tablet See Rx Instructions .Route 03/06/24 05/12/24 Rx .COMPLEX #90 tabs isosorbide mononitrate 30 mg 30 mg PO DAILY 30 days #90 tabs 03/31/24 05/12/24 Rx tablet,extended release 24 hr atorvastatin 40 mg tablet 40 mg PO HS #90 tabs 04/07/24 05/12/24 Rx furosemide 40 mg tablet See Rx Instructions .Route 04/07/24 05/12/24 Rx .COMPLEX #90 tabs sulfasalazine 500 mg 0.5 g PO DAILY #30 tabs 04/21/24 05/12/24 Rx tablet,delayed release cariprazine 1.5 mg capsule 1.5 mg PO DAILY #30 caps 05/12/24 05/12/24 Rx (Vraylar) gabapentin 100 mg capsule See Rx Instructions .Route 05/12/24 05/12/24 Rx .COMPLEX #90 caps quetiapine 100 mg tablet (Seroquel) 100 mg PO DAILY #30 tabs 05/12/24 05/12/24 Rx alendronate 70 mg tablet See Rx Instructions .Route 06/03/24 Rx .COMPLEX #12 tabs New Prescriptions to Start Prescriptions: Allergies Allergy/AdvReac Type Severity Reaction Status Date / Time hydralazine Allergy Mild itching Verified 05/12/24 14:25 codeine Allergy Nausea Verified 05/12/24 14:25 Assessment and Plan *Assessment and plan (1) Lumbar radiculopathy: Status: Chronic Category: Medical Code(s): M54.16 - Radiculopathy, lumbar region Plan Patient is experiencing worsening pain from her low back with radiating numbness and tingling down her entire right extremity. I did discuss with the patient that she may benefit from lumbar epidural steroid injection. Risk and benefits were discussed with the patient and she would like to proceed forward with this plan of care. Patient has tried and failed conservative therapy including continued at home stretching exercise for longer than 12 weeks. We will submit to insurance for lumbar epidural steroid injection L4-L5 under fluoroscopy. Patient denies any blood thinners other than an 81 mg aspirin. Patient has been instructed to contact the clinic with any concerns before the next appointment. Dr. Robbins has reviewed this note and agrees with this plan of care. This note was dictated using voice recognition software and make contain errors or omissions. All injections are used with Lidocaine or Bupivacaine and Depo Medrol.
[2024-06-05 12:27] VITALS: BP 136/76; PULSE 78; RESP 16; O2SAT 95; BMI 20.5
== END 2024-06-05 23:59 | disposition home or self-care (01) ==
LOC: SC.PAIN 11:13
PROVIDERS: PCP Physician Assistant; Visit Provider Nurse Practitioner Family
DX: M54.16 Radiculopathy, lumbar region (principal); F17.210 Nicotine dependence, cigarettes, uncomplicated; Z79.899 Other long term (current) drug therapy
CPT/HCPCS: 99212; G0463

== ENCOUNTER 2024-07-15 08:37 | Day surgery (SDC) | payer OTHER, SELFPAY ==
[2024-07-15 08:54] VITALS: BP 129/66; PULSE 75; RESP 16; TEMP 36.6; O2SAT 94; BMI 20.5
[2024-07-15 09:03] VITALS: BP 112/73; PULSE 77; RESP 18; O2SAT 96
[2024-07-15] MEDS: methylPREDNISolone ACETATE 80MG/ML VIAL 80 MG (09:03)
[2024-07-15 09:05] VITALS: BP 112/73; PULSE 79; RESP 18; O2SAT 96
--- NOTE | 2024-07-15 09:08 | EXP.PAIN.PRO ---
Procedure Date: 07/15/24 Time: 08:50 Anesthesiologist:: Kelby Mina CRNA Complications:: None Pre-procedure Diagnosis:: Degenerative disc lumbar spine multilevels. Lumbar radiculopathy. Lumbar disc bulge L4-5, L5-S1. Post-procedure Diagnosis:: Same. Indications for Procedure:: Patient is a very pleasant 63-year-old female who comes our clinic today for repeat lumbar epidural steroid injection. Patient had significant improvement terms of her overall low back pain as well as bilateral hip and leg radicular symptoms with previous injection same level. Patient describes low lumbar back pain is constant, dull, aching. She reports bilateral leg radicular symptoms to the knee and the posterior lower extremities. Procedure Details:: Procedure: Lumbar epidural steroid injection under fluoroscopy Informed consent was obtained and the risks and benefits of the procedure were explained to the patient. The patient was taken to the procedure room and noninvasive monitors placed, including noninvasive blood pressure cuff and pulse oximeter. The back was viewed using C-arm Fluoroscopy and prepped using Chloraprep as a cleansing solution and the L4-L5 interspace was palpated. Skin and subcutaneous tissues were anesthetized using lidocaine 1.5% and a 25-gauge needle. After this, an 18-gauge Touhy epidural needle was placed into the L4-L5 interspace and advanced using fluoroscopic guidance and loss of resistance to air until the epidural space was encountered. After confirmation of needle placement in the epidural space, with dye, a solution containing normal saline, 3 mL and Depo-Medrol 80 mg were incrementally injected into the lumbar epidural space. The patient tolerated the procedure well with no complications. The patient was observed in the Pain Clinic and then discharged home neurologically intact. Plan and Disposition:: Patient was discharged without incident.
[2024-07-15 09:10] VITALS: BP 112/72; PULSE 68; RESP 18; O2SAT 98
== END 2024-07-15 09:10 | disposition home or self-care (01) ==
PROVIDERS: PCP Physician Assistant; Visit Provider Nurse Anesthetist, Certified Registered
DX: M51.16 Intervertebral disc disorders with radiculopathy, lumbar region (principal)
CPT/HCPCS: 62323; J1010

== ENCOUNTER 2024-09-01 07:31 | Outpatient (CLI) | payer OTHER, SELFPAY ==
--- NOTE | 2024-09-01 07:33 | MM_ITS ---
PROCEDURE INFORMATION: Exam: MG Bilateral Screening 3D Mammography Exam date and time: 09/01/2024 8:07 AM Age: 63 years old Clinical indication: Screening examination TECHNIQUE: Imaging protocol: Bilateral Screening tomosynthesis and 2D mammography including computer-aided detection (CAD) when performed. COMPARISON: MG MM DIG SCREENING MAMM BI W/CAD 08/07/2023 10:39 AM FINDINGS: MAMMOGRAPHY: Breast composition: There are scattered areas of fibroglandular density. Mass: No suspicious masses. Architectural distortion: None. Calcifications: No suspicious calcifications. Asymmetric density: None. Skin thickening: None. Axillary adenopathy: None. IMPRESSION: No mammographic evidence of malignancy. Annual screening is recommended unless otherwise clinically indicated. ASSESSMENT: BI-RADS Category 1: Negative.
== END 2024-09-01 23:59 | disposition home or self-care (01) ==
PROVIDERS: PCP Physician Assistant; Visit Provider Physician Assistant
DX: Z12.31 Encounter for screening mammogram for malignant neoplasm of breast (principal)
CPT/HCPCS: 77063; 77067

== ENCOUNTER 2024-09-05 13:15 | Outpatient (POV) | payer MEDICARE, OTHER, SELFPAY ==
[2024-09-05 14:06] VITALS: BP 131/80; PULSE 79; RESP 18; O2SAT 97; BMI 21.8
--- NOTE | 2024-09-05 14:27 | EXP.PAIN.SOA ---
[facility] Disclaimer: The information contained in this section may have been updated after the patient was seen, as this information can be updated by other users. Medical History Age related osteoporosis Lung nodule Smoking greater than 30 pack years Dyspnea on exertion DDD (degenerative disc disease), lumbar Arthritis COPD (chronic obstructive pulmonary disease) GERD (gastroesophageal reflux disease) COPD (chronic obstructive pulmonary disease) Surgical History History of colonoscopy H/O: hysterectomy Family History Other Family history of myocardial infarction Social History Smoking Status: Current every day smoker tobacco type: cigarettes packs per day: 1 alcohol intake: never substance use type: denies use current occupational status: other household members: family housing: house current occupation: caregiver current occupational exposures/hazards: Yes caffeine: Yes PM Subjective & Objective Subjective Subjective:: Patient is a pleasant 63-year-old female who presents today for follow-up of lumbar epidural steroid injection L4-L5 on 07/15/2024. Today she rates her pain a 0 out of 10. She does state that she has had 100% relief and feels like it is still working wonderful. Patient has been able to increase her activity with overall decreased pain and feels much more functional. Patient is prescribed gabapentin and clonazepam from an outside provider. Her Fish has been reviewed and is appropriate. Review of Systems: General: No recent weight changes, no fever, no sleep disturbances Respiratory: No cough, no shortness of air, no recurring pulmonary infections Cardiovascular/peripheral vascular: No chest pain, no palpitations, no edema, no shortness of breath Gastrointestinal: No new onset incontinence, normal bowel movements reported Genitourinary: No new onset incontinence Musculoskeletal: Low back pain Psychiatric: [Normal mood/affect] Neurological: [Denies weakness in extremities], [denies balance issues] Pain at rest (0-10 scale): 0 Objective Objective:: Physical Exam: General: Alert and oriented x3, no acute distress, pleasant and cooperative Lungs: Respirations even and unlabored, symmetrical chest expansion Eyes: PERRL Musculoskeletal: Flexion and extension of lumbar [spine] within normal limits Neurological: Speech clear, no gross sensory deficit Has patient had previous pain injection?: Yes Percent improvement in pain since last injection: 100% Conservative treatment options previously tried: Home exercise plan Length of treatment: Longer than 12 weeks Meds Home Medications and Allergies Home Medications ?Medication ?Instructions ?Recorded ?Confirmed ?Type pantoprazole 40 mg tablet,delayed See Rx Instructions .Route 09/18/22 09/05/24 History release .COMPLEX STOMACH albuterol sulfate 90 mcg/actuation 2 puff inhalation Q6H PRN BREATHING 11/27/22 09/05/24 History aerosol inhaler escitalopram oxalate 20 mg tablet 20 mg PO DAILY MOOD 11/27/22 09/05/24 History ipratropium 0.5 mg-albuterol 3 mg 3 ml inhalation QID PRN shortness 01/25/23 09/05/24 Rx (2.5 mg base)/3 mL nebulization of breath or wheezing #90 mL soln umeclidinium 62.5 mcg-vilanterol 1 inh inhalation DAILY 90 days 02/14/23 09/05/24 Rx 25 mcg/actuation powdr for #180 ea inhalation (Anoro Ellipta) bupropion HCl 75 mg tablet See Rx Instructions .Route 07/05/23 09/05/24 Rx .COMPLEX #60 tabs aspirin 81 mg tablet,delayed 81 mg PO DAILY #30 tabs 09/24/23 09/05/24 Rx release metoprolol succinate 25 mg 25 mg PO DAILY #30 tabs 09/24/23 09/05/24 Rx tablet,extended release 24 hr (Toprol XL) nitroglycerin 0.4 mg sublingual 0.4 mg sublingual Q5M PRN chest 09/24/23 09/05/24 Rx tablet pain #30 tabs famotidine 20 mg tablet (Pepcid) 20 mg PO DAILY #30 tabs 10/04/23 09/05/24 Rx amitriptyline 25 mg tablet 25 mg PO HS #30 tabs 11/19/23 09/05/24 Rx cholecalciferol (vitamin D3) 50 50 mcg PO DAILY #90 caps 11/28/23 09/05/24 Rx mcg (2,000 unit) capsule cyanocobalamin (vitamin B-12) 1,000 mcg IM QMONTH Vitamin B-12 11/28/23 09/05/24 Rx 1,000 mcg/mL injection solution Deficiency #100 mL ergocalciferol (vitamin D2) 1,250 1,250 mcg PO WEEKLY SUPPLIMENT #14 11/28/23 09/05/24 Rx mcg (50,000 unit) capsule caps isosorbide mononitrate 30 mg 30 mg PO DAILY 30 days #90 tabs 03/31/24 09/05/24 Rx tablet,extended release 24 hr atorvastatin 40 mg tablet 40 mg PO HS #90 tabs 04/07/24 09/05/24 Rx furosemide 40 mg tablet See Rx Instructions .Route 04/07/24 09/05/24 Rx .COMPLEX #90 tabs sulfasalazine 500 mg 0.5 g PO DAILY #30 tabs 04/21/24 09/05/24 Rx tablet,delayed release cariprazine 1.5 mg capsule 1.5 mg PO DAILY #30 caps 05/12/24 09/05/24 Rx (Vraylar) gabapentin 100 mg capsule See Rx Instructions .Route 05/12/24 09/05/24 Rx .COMPLEX #90 caps alendronate 70 mg tablet See Rx Instructions .Route 06/03/24 09/05/24 Rx .COMPLEX #12 tabs levothyroxine 25 mcg tablet See Rx Instructions .Route 06/09/24 09/05/24 Rx .COMPLEX #90 tabs quetiapine 100 mg tablet See Rx Instructions .Route 07/11/24 09/05/24 Rx .COMPLEX #30 tabs New Prescriptions to Start Prescriptions: Allergies Allergy/AdvReac Type Severity Reaction Status Date / Time hydralazine Allergy Mild itching Verified 07/15/24 08:56 codeine Allergy Nausea Verified 07/15/24 08:56 Assessment and Plan *Assessment and plan (1) Lumbar radiculopathy: Status: Chronic Category: Medical Code(s): M54.16 - Radiculopathy, lumbar region (2) Degenerative disc disease, lumbar: Status: Chronic Category: Medical Code(s): M51.36 - Other intervertebral disc degeneration, lumbar region Plan Patient had significant relief with her epidural and does not require any additional injection therapy at this time. Patient will return to clinic in 6 weeks for reevaluation of symptoms and plan of care. Patient has been instructed to contact the clinic with any concerns before the next appointment. Dr. Robbins has reviewed this note and agrees with this plan of care. This note was dictated using voice recognition software and make contain errors or omissions. All injections are used with Lidocaine or Bupivacaine and Depo Medrol.
== END 2024-09-05 23:59 | disposition home or self-care (01) ==
LOC: SC.PAIN 13:18
PROVIDERS: PCP Physician Assistant; Visit Provider Nurse Practitioner Family
DX: M51.16 Intervertebral disc disorders with radiculopathy, lumbar region (principal); F17.210 Nicotine dependence, cigarettes, uncomplicated; Z79.899 Other long term (current) drug therapy
CPT/HCPCS: 99212; G0463

== ENCOUNTER 2024-11-17 10:14 | Outpatient (CLI) | payer MEDICARE, SELFPAY ==
[2024-11-17 11:38] LABS: Alanine Aminotransferase 18 U/L (12-78); Albumin Level 4.4 g/dl (3.5-5.0); Alkaline Phosphatase 72 U/L (38-126); Anion Gap 10.5 mEq/L (5-15); Aspartate Amino Transferase 25 U/L (14-36); Bilirubin,Direct 0.1 mg/dl (0.0-0.4); Bilirubin,Indirect 0.2 mg/dL (0.0-0.9); Bilirubin,Total 0.3 mg/dl (0.2-1.3); Bilirubin,Unconjugated 0.1 mg/dL (0.0-1.1); Blood Urea Nitrogen 13 mg/dl (7-17); Calcium 9.5 mg/dl (8.4-10.2); Carbon Dioxide 27 mmol/L (22.0-30.0); Chloride 108 mmol/L (98-107); Chol/HDL Ratio 2.5 (1-3.5); Cholesterol 157 mg/dl (140-200); Estimated Glomerular Filt Rate 72 ml/min (>60); GFR (African American) 87 ML/MIN (>60); Glucose 92 mg/dl (74-100); HDL Cholesterol 62 mg/dl (40-60); Magnesium 2.1 mg/dl (1.6-2.3); Potassium 4.5 mmoL/L (3.5-5.1); Sodium 141 mmol/L (136-145); Total Protein,Serum 6.4 g/dl (6.3-8.2); Triglycerides 88 mg/dl (30-150); VLDL Cholesterol 18 mg/dL (0-40)
[2024-11-17 11:49] LABS: Direct LDL Cholesterol 66.82 mg/dL (100-129); Total Iron Binding Capacity 333 ug/dL (265-497)
[2024-11-17 11:54] LABS: Basophils # 0.1 K/mm3 (0-0.2); Eosinophils # 0.1 K/mm3 (0.0-0.4); Eosinophils % 0.8 % (0.1-12.0); Hematocrit 42.6 % (37.0-47.0); Hemoglobin 13.7 g/dL (12.2-16.2); Lymphocytes # 3.1 K/mm3 (0.7-4.5); Lymphocytes % 37.5 % (10-50); Mean Corpuscular HGB Conc 32.2 g/dL (31.8-35.4); Mean Corpuscular Hemoglobin 29.3 pg (27.0-31.2); Mean Platelet Volume 11.8 fl (7.4-10.4); Monocytes # 0.9 K/mm3 (0.1-1.0); Monocytes % 10.8 % (1.7-9.3); Neutrophils # 4.2 K/mm3 (1.8-7.8); Neutrophils % 49.7 % (37.0-80.0); Platelet Count 387 K/mm3 (142-424); Red Blood Count 4.68 M/mm3 (4.20-5.40); Red Cell Distribution Width 15.4 % (11.5-17.5); White Blood Count 8.4 K/mm3 (4.8-10.8)
[2024-11-17 12:19] LABS: Free T4 (Free Thyroxine) 1.04 ng/dl (0.78-2.19)
[2024-11-17 12:24] LABS: 25-OH Vitamin D, Total 89.1 ng/mL (30-100)
[2024-11-17 12:37] LABS: Thyroid Stimulating Hormone 3.72 uIU/mL (0.465-4.68)
[2024-11-17 12:56] LABS: Vitamin B12 627 pg/mL (239-931)
[2024-11-17 15:01] LABS: Iron 76 ug/dL (37-170)
== END 2024-11-17 23:59 | disposition home or self-care (01) ==
LOC: LAB 10:16
PROVIDERS: PCP Physician Assistant; Visit Provider Physician Assistant
DX: R06.09 Other forms of dyspnea (principal); I25.10 Atherosclerotic heart disease of native coronary artery without angina pectoris; E78.5 Hyperlipidemia, unspecified; K21.9 Gastro-esophageal reflux disease without esophagitis; Z72.0 Tobacco use; J44.9 Chronic obstructive pulmonary disease, unspecified; E55.9 Vitamin D deficiency, unspecified; D64.9 Anemia, unspecified; R00.2 Palpitations
CPT/HCPCS: 36415; 80048; 80061; 80076; 82306; 82607; 83540; 83550; 83735; 84439; 84443; 85025; 93270

== ENCOUNTER 2024-11-24 13:12 | Outpatient (CLI) | payer MEDICARE, SELFPAY ==
--- NOTE | 2024-11-24 13:16 | CA_ITS ---
APPROVED REPORT EXAM: Comprehensive 2D, Doppler, and color-flow Echocardiogram Technology Applications Teacher: Lima Terrell RDCS Ht: 5 ft 4 in Wt: 126lbs BSA: 1.61 BP: 116/72 mmHg Indications: SOA,CAD,COPD M-Mode Dimensions RVDd 2.35 cm (0.9-2.6) LA Diam 3.01 cm (1.9-4.0) LVDd 4.78 cm (3.5-5.7) LVDs 2.69 cm (3.5-5.7) IVSd 0.61 cm (0.6-1.1) PWd 0.76 cm (0.6-1.1) EF (Teich) 74.80% FS 43.70% EDV (Teich) 106.50 mL TAPSE 2.46 (<1.7) ESV (Teich) 26.80 mL LV Diastology E Decel Time 223 (160-240 msec) E/A Ratio 0.9 Mitral Valve MV E Max Gee. 57.0 (40-130 cm/s) MV A Velocity 67.0 (40-130 cm/s) E/A Ratio 0.85 MV PHT 65.0 ms Left Ventricle The left ventricle is normal size. The left ventricular systolic function is normal. The left ventricular ejection fraction is within the normal range. There is normal left ventricular wall thickness. There is normal LV segmental wall motion. The left ventricular diastolic function is normal. LVEF is 65%. Right Ventricle The right ventricle is mildly dilated. The right ventricular systolic function is normal. Atria The left atrium size is normal. The right atrium size is normal. There is no Doppler evidence of interatrial shunt. Aortic Valve The aortic valve is mildly thickened. There is no aortic valvular stenosis. No aortic regurgitation is present. Mitral Valve The mitral valve is normal in structure. No evidence of mitral valve stenosis. Trace mitral regurgitation. Tricuspid Valve Tricuspid valve is grossly normal in structure and function. Trace tricuspid regurgitation. There is insufficient TR jet to estimate RVSP. Pulmonic Valve The pulmonary valve is normal in structure. Trace pulmonic regurgitation. Great Vessels The aortic root is normal in size. IVC is normal in size and collapses >50% with inspiration. Pericardium There is no pericardial effusion. Other Information Study Quality: Adequate Conclusion Normal biventricular systolic function. Mild RV dilation. No significant valvular stenosis or regurgitation. Electronically signed by : Deepali Franco MD 11/30/2024 01:02:51
== END 2024-11-24 23:59 | disposition home or self-care (01) ==
LOC: RT 13:13
PROVIDERS: PCP Physician Assistant; Visit Provider Physician Assistant
DX: I51.7 Cardiomegaly (principal); I25.10 Atherosclerotic heart disease of native coronary artery without angina pectoris; R06.09 Other forms of dyspnea
CPT/HCPCS: 93306

== ENCOUNTER 2025-07-17 10:07 | Emergency (ER) | payer MEDICARE, SELFPAY ==
[2025-07-17] VITALS (11 sets, daily range): BP systolic 98–121; BP diastolic 66–74; PULSE 65–76; RESP 15–23; TEMP 36.6–36.7; O2SAT 94–97; BMI 20.5
--- NOTE | 2025-07-17 10:20 | ECG_ITS ---
APPROVED REPORT Exam: Resting ECG HR:73 bpm ECG Measurements Heart Rate 73 AXES DE 172 P 61 QRSd 102 QRS 61 QT 395 T 56 QTc 421 Conclusion Normal sinus rhythm Normal axis Normal intervals No STEMI Electronically signed by : Ananth Pichardo, 07/17/2025 16:11:43
--- OUTSIDE RECORDS SUMMARY | 2025-07-17 10:20 | XMS_ITS | Clinical Summary ---
Author Organization Healthcare Address [address] [place] [address] Care Team Providers Care Relationship Executive Name Role Phone Julio C Mas MD Primary Care Provider [phone] Immunizations Immunization Administration Dates Next Due Hib (PRP-T) 01/09/2021 Meningococcal B, Omv 04/26/2021,01/09/2021 Meningococcal MCV4O 01/09/2021 Meningococcal MCV4P 04/26/2021 Pneumococcal Conjugate PCV 13 01/09/2021 Pneumococcal Polysaccharide PPV23 04/26/2021 Family History Medical History Relation Name Comments Heart attack Father Arthritis Mother Hypertension Mother Relation Name Status Comments Father Mother Social History Tobacco Use Types Packs/Day Years Used Date Smoking Tobacco: Every Day Alcohol Use Standard Drinks/Week Comments No 0 (1 standard drink = 0.6 oz pur e alcohol) Comments Unknown Sex and Gender Information Value Date Recorded Sex Assigned at Not on file Legal Sex Female 8:49 PM EDT Gender Identity Not on file Sexual Orientation Not on file Last Filed Vital Signs Vital Sign Reading Time Taken Comments Blood Pressure 128/80 04/26/2021 1:50 PM EDT Pulse 82 04/26/2021 1:50 PM EDT Temperature 35.6 C (96 F) 04/26/2021 1:50 PM EDT Respiratory Rate - - Oxygen Saturation - - Inhaled Oxygen Concentration - - Weight 56 kg (123 lb 7.3 oz) 04/26/2021 1:50 PM EDT Height 162.6 cm (5' 4 ) 02/11/2021 11:00 AM EDT Body Mass Index 21.19 02/11/2021 11:00 AM EDT Plan of Treatment Health Maintenance Due Date Last Done Comments [facility]-Bone Density Scan 1959 [facility]-Depression Screening 1959 [facility]-Infant/Child/Adol SDOH Screenings 1959 [facility]- SDOH Screenings 1977 [facility]-Adult SDOH Screenings 1977 [facility]-DTaP,Tdap,and Td Vaccine s (1 - Tdap) 1978 [facility]-Pap Smear 1980 [facility]-Cervical Cancer Screening 1989 [facility]-HPV/Cotest 1989 CT Colonography 2004 Colonoscopy 2004 FIT-DNA 2004 FIT 2004 FOBT 2004 Sigmoidoscopy 2004 [facility]-Colorectal Cancer Screening 2004 [facility]-Zoster Vaccines (2 of 2) 12/20/2023 10/25/2023 [id number] Vaccine (3 - season) 2025 05/23/2022, 05/20/2021 [facility]-Influenza Vaccine (#1) 06/15/202507/31, 08/02/2022 [facility]-Pneumococcal Vaccine: 50 + Years (3 of 3 - PCV20 or PCV21) 04/26/2026 04/26/2021, 01/09/2021 [facility]-HIB Vaccines Aged Out 01/09/2021 No longer e ligible based on patient's age to complete this topic [facility]-RSV Vaccine: 60+ Years o r Completed 10/25/2023 HPV Vaccines Aged Out No longer eligi ble based on patient's age to complete this topic [facility]-Hepatitis A Vaccines Aged Out No longer eligible based on patient's age to complete this topic [facility]-IPV Vaccines Aged Out No longer e ligible based on patient's age to complete this topic [facility]-Rotavirus Vaccines Aged Out No lo nger eligible based on patient's age to complete this topic Insurance [employer] [facility] MEDICAID Care Teams Relationship Executive Relationship Specialty Start Date End Date Julio C Mas MD [address] [place] [address] PCP - General 02/25/21
--- OUTSIDE RECORDS SUMMARY | 2025-07-17 10:20 | XMS_ITS | Clinical Summary ---
[facility] Organization [facility] Address [address] [place] [address] Care Team Providers Care Feller Operator Name Role Phone Provider, No Known Primary Care Provider Unavail able Allergies No known active allergies Medications metoprolol succinate XL (TOPROL-XL) 100 MG 24 hr tablet Take 100 mg by mouth Daily. Active naproxen (NAPROSYN) 500 MG tabletIndicatio ns:Acute right-sided low back pain without sciatica Take 1 tablet by mouth 2 (Two) Times a Day With Meals. 60 tablet 8 Active albuterol (PROVENTIL HFA;VENTOLIN HFA) 108 (90 Base) MCG/ACT inhaler Inhale 2 puffs Every 4 (Four) Hours As Needed for Wheezing or Shortness of Air. 1 inhaler 8 Active Social History Tobacco Use Types Packs/Day Years Used Date Smoking Tobacco: Every Day Abuse Screen Answer Date Recorded Unsafe at Home or Work/School Not on file Feels Threatened by Someone? Not on file 06/2023 Does Anyone Keep You from Co ntacting Others or Doint Things Outside the Home? Not on file 07/23/2023 Physical Sign of Abuse Present Not on file 1 Housing Stability Answer Date Recorded Current Living Arrangements Not on file 06/2023 Potentially Unsafe Housing Conditions Not on zayda e 07/23/2023 Family and Community Support Answer Sandeep e Recorded Help with Day-to-Day Activities Not on file 07/23/2023 Lonely or Isolated Not on file 07/23/2023 Employment Answer Date Recorded Do you want help finding or keeping work or a holly b? Not on file 07/23/2023 Disabilities Answer Date Recorded Concentrating, Remembering, or Making Decisions Difficulty Not on file 07/23/2023 Doing Errands Independently Difficulty Not on fi le 07/23/2023 Education Answer Date Recorded Help with school or training? Not on file Preferred Language Not on file 07/23/2023 Comments No Sex and Gender Information Value Date Recorded Sex Assigned at Not on file Legal Sex Female 12:43 PM EDT Gender Identity Not on file Sexual Orientation Not on file Last Filed Vital Signs Vital Sign Reading Time Taken Comments Blood Pressure 130/86 08/30/2018 2:44 PM EST Pulse 93 08/30/2018 2:44 PM EST Temperature 36.8 C (98.2 F) 08/30/2018 2:44 PM EST Respiratory Rate 16 08/30/2018 2:44 PM EST Oxygen Saturation 98% 08/30/2018 2:44 PM EST Inhaled Oxygen Concentration - - Weight 60.5 kg (133 lb 6.4 oz) 08/30/2018 2:44 P M EST Height 162.6 cm (5' 4 ) 08/30/2018 2:44 PM EST Body Mass Index 22.9 08/30/2018 2:44 PM EST Plan of Treatment Health Maintenance Due Date Last Done Comments DXA SCAN 1959 TDAP/TD VACCINES (1 - Tdap) 1978 MAMMOGRAM 1999 COLOGUARD 2004 COLON CANCER SCREENING 5 YEAR SIGMOIDOSCOPY 2004 COLONOSCOPY [address] CANCER SCREENING 2004 CT COLONOGRAPHY 2004 FECAL OCCULT BLOOD TEST 2004 FIT Testing (1 year) 2004 Pneumococcal Vaccine 50+ (1 of 1 - PCV) 2009 ZOSTER VACCINE (1 of 2) 2009 ANNUAL PHYSICAL 07/29/2018 HEPATITIS C SCREENING 07/29/2018 INFLUENZA VACCINE 05/15/2025 COVID-19 Vaccine ( - season) 2025 [facility] Care Teams Feller Operator Relationship Specialty Start Date End Date Provider, [place] [address] PCP - General 07/29/18
--- NOTE | 2025-07-17 10:55 | XR_ITS ---
FINAL REPORT CLINICAL HISTORY: Right chest pain COMPARISON: 01/10/2022 FINDINGS: The heart size is normal. The mediastinum is normal. There are mild chronic changes in both lungs. There are no pleural effusions. There is no pneumothorax. There is no osseous abnormality. IMPRESSION: Chronic changes without acute cardiopulmonary process Reviewed, Interpreted and Dictated by Rashid Davis MD Transcribed by Collette Segura Authenticated and [facility]
[2025-07-17 11:01] LABS: Hematocrit 44.4 % (37.0-47.0); Hemoglobin 13.8 g/dL (12.2-16.2); Immature Granulocytes % 0.4 %; Mean Corpuscular HGB Conc 31.1 g/dL (31.8-35.4); Mean Corpuscular Hemoglobin 29.6 pg (27.0-31.2); Mean Corpuscular Volume 95.3 fl (81-99); Nucleated Red Blood Cells % 0 %; Platelet Count 389 K/mm3 (142-424); Red Blood Count 4.66 M/mm3 (4.20-5.40); Red Cell Distribution Width-SD 53.9 fL; White Blood Count 13.9 K/mm3 (4.8-10.8)
--- NOTE | 2025-07-17 11:04 | PC.NURSE ---
xr at bedside
[2025-07-17] MEDS: METHOCARBAMOL 500MG TABLET 1500 MG PO (11:05)
[2025-07-17] MEDS: ASPIRIN 325MG TABLET 325 MG PO (11:05)
--- NOTE | 2025-07-17 11:06 | PC.NURSE ---
PT MEDICATED PER EMAR, NO NEEDS AT THIS TIME. CALL LIGHT WITHIN REACH. FAMILY AT BEDSIDE
[2025-07-17 11:23] LABS: Alanine Aminotransferase 16 U/L (12-78); Albumin Level 4.2 g/dl (3.5-5.0); Albumin/Globulin Ratio 1.7 (1.1-1.8); Alkaline Phosphatase 99 U/L (38-126); Anion Gap 15.5 mEq/L (5-15); Aspartate Amino Transferase 30 U/L (14-36); Bilirubin,Total 0.9 mg/dl (0.2-1.3); Blood Urea Nitrogen 11 mg/dl (7-17); Calcium 9.3 mg/dl (8.4-10.2); Carbon Dioxide 21 mmol/L (22.0-30.0); Chloride 108 mmol/L (98-107); Creatinine Clearance Estimated 48 mL/min (50-200); Creatinine,Serum 0.80 mg/dl (0.52-1.04); Estimated Glomerular Filt Rate 72 ml/min (>60); GFR (African American) 87 ML/MIN (>60); Globulin 2.5 g/dL (1.3-3.2); Glucose 82 mg/dl (74-100); Lipase 249 U/L (23-300); Potassium 4.5 mmoL/L (3.5-5.1); Sodium 140 mmol/L (136-145); Total Protein,Serum 6.7 g/dl (6.3-8.2)
[2025-07-17 11:27] LABS: D-Dimer 0.81 ug/mL (0.0-0.5)
[2025-07-17 11:43] LABS: Troponin I < 0.01 ng/ml (0.00-0.034)
--- NOTE | 2025-07-17 13:16 | PC.NURSE ---
PT ASSISTED TO BR
[2025-07-17] MEDS: LIDOCAINE 5% TRANSDERMAL PATCH 1 EACH TD (13:20)
[2025-07-17 14:22] LABS: Troponin I < 0.01 ng/ml (0.00-0.034)
--- NOTE | 2025-07-17 14:32 | ED_ITS ---
Discharge Plan Disposition Patient Disposition: Home, Self-Care Condition: Good Prescriptions Prescriptions: New lidocaine 5 % adhesive patch,medicated See Rx Instructions .ROUTE .COMPLEX Qty: 15 0RF Rx Instructions: leave on most painful area for up to 12 hrs methocarbamol 1,000 mg tablet 1,000 mg PO TID Qty: 90 0RF No Action ipratropium-albuterol 0.5 mg-3 mg(2.5 mg base)/3 mL solution for nebulization 3 ml inhalation QID PRN (Reason: shortness of breath or wheezing) Qty: 90 3RF Anoro Ellipta 62.5-25 mcg/actuation blister with device 1 inh inhalation DAILY 90 Days Qty: 180 3RF aspirin 81 mg tablet,delayed release (DR/EC) 81 mg PO DAILY Qty: 30 2RF nitroglycerin 0.4 mg tablet, sublingual 0.4 mg sublingual Q5M PRN (Reason: chest pain) Qty: 30 0RF Rx Instructions: do not exceed 3 doses per episode albuterol sulfate 90 mcg/actuation HFA aerosol inhaler 2 puff inhalation Q6H PRN (Reason: BREATHING) gabapentin 100 mg capsule See Rx Instructions .ROUTE .COMPLEX Qty: 90 1RF Dose Instruction: TAKE ONE CAPSULE BY MOUTH THREE TIMES DAILY FOR PAIN Rx Instructions: TAKE ONE CAPSULE BY MOUTH THREE TIMES DAILY FOR PAIN levocetirizine 5 mg tablet 5 mg PO DAILY Patient Comments: Take 1 tablet every day by oral route as directed, for sinuses. montelukast 10 mg tablet 10 mg PO DAILY Patient Comments: Take 1 tablet every day by oral route for 30 days. varenicline tartrate [Chantix Continuing Month Box] 1 mg tablet 1 mg PO BID Qty: 56 5RF varenicline tartrate [Chantix Starting Month Box] 0.5 mg (11)- 1 mg (42) tablets,dose pack See Rx Instructions PO PER PKG DIR Qty: 53 0RF Rx Instructions: PO PER PKG DIR alendronate 70 mg tablet See Rx Instructions .ROUTE .COMPLEX Qty: 12 0RF Dose Instruction: TAKE 1 TABLET(70 mg) orally weekly for osteoperosis; take 30 minutes-1hour before eating Rx Instructions: TAKE 1 TABLET(70 mg) orally weekly for osteoperosis; take 30 minutes-1hour before eating levothyroxine 25 mcg tablet See Rx Instructions .ROUTE .COMPLEX Qty: 90 0RF Dose Instruction: take 1 tablet by mouth daily every morning 30 minutes before breakfast for Hypothyroidism. Rx Instructions: take 1 tablet by mouth daily every morning 30 minutes before breakfast for Hypothyroidism. quetiapine 100 mg tablet See Rx Instructions .ROUTE .COMPLEX Qty: 30 2RF Dose Instruction: TAKE ONE TABLET BY MOUTH DAILY Rx Instructions: TAKE ONE TABLET BY MOUTH DAILY isosorbide mononitrate 30 mg tablet extended release 24 hr See Rx Instructions .ROUTE .COMPLEX Qty: 90 3RF Dose Instruction: TAKE 1 TABLET(30 mg) orally daily for 30 days Rx Instructions: TAKE 1 TABLET(30 mg) orally daily for 30 days atorvastatin 40 mg tablet 40 mg PO HS Qty: 90 3RF furosemide 40 mg tablet See Rx Instructions .ROUTE .COMPLEX Qty: 90 3RF Dose Instruction: TAKE ONE TABLET BY MOUTH DAILY Rx Instructions: TAKE ONE TABLET BY MOUTH DAILY metoprolol succinate [Toprol XL] 25 mg tablet extended release 24 hr 25 mg PO DAILY Qty: 30 6RF Referrals Follow up/Referrals: Sonya Anaya PA [Primary Care Provider, Medical] - See instructions Activity Restrictions/Add. Instructions Additional Instructions/Restrictions: Your labs and x-ray were normal. I want you to take Robaxin for muscle relaxation and lidocaine patches for pain. You can also supplement with ibuprofen and Tylenol at home. If you have any new or worsening symptoms please return Clinical Impressions Clinical Impression: Right-sided chest wall pain Stand Alone Forms Stand Alone Forms: Work/School Release Print Language Print Language: Slovenian Discharge ED Provider: Ananth Pichardo Adult HPI General Chief complaint: PAIN Stated complaint: R side pain, under breast Time Seen by Provider: 07/17/25 10:51 Mode of Arrival: Ambulatory Source of Information: Patient Description of Symptoms (Recalled from ER Triage Doc. by RN): Reports right sided rib pain for 4 days with shortness of breath. Denies any injury. History of Present Illness HPI narrative: This is a 64-year-old female patient, with past medical history of tobacco abuse, hyperlipidemia, coronary artery disease, and COPD on room air at home, who is presenting to the emergency department today for evaluation of right sided chest pain. 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 She states that in the setting of this recent use she has developed pain in the right side of her chest wall. This pain does not radiate and is not exertional. The pain has been constant for the last 4 days. She is not experiencing shortness of breath or pleuritic pain. No cough or production of phlegm. Related Data Home Medications ?Medication ?Instructions ?Recorded ?Confirmed albuterol sulfate 90 mcg/actuation 2 puff inhalation Q 6H PRN BREATHING 11/27/22 06/08/25 aerosol inhaler levocetirizine 5 mg tablet 5 mg PO DAILY 11/17/2405/16 montelukast 10 mg tablet 10 mg PO DAILY 06/08/2505/16 Previous Rx's ?Medication ?Instructions ?Recorded ipratropium 0.5 mg-albuterol 3 mg 3 ml inhalation QID PRN shortness 01/25/23 (2.5 mg base)/3 mL nebulization of breath or wheezing #90 mL soln umeclidinium 62.5 mcg-vilanterol 1 inh inhalation RUBENS Y 90 days 02/14/23 25 mcg/actuation powdr for #180 ea inhalation (Anoro Ellipta) aspirin 81 mg tablet,delayed 81 mg PO DAILY #30 tabs 1 11/25/22 release nitroglycerin 0.4 mg sublingual 0.4 mg sublingual Q5M PRN chest 09/24/23 tablet pain #30 tabs gabapentin 100 mg capsule See Rx Instructions .Route 0 05/12/24 .COMPLEX #90 caps alendronate 70 mg tablet See Rx Instructions .Route 0 06/03/24 .COMPLEX #12 tabs levothyroxine 25 mcg tablet See Rx Instructions .Route 06/09/24 .COMPLEX #90 tabs quetiapine 100 mg tablet See Rx Instructions .Route 0 07/11/24 .COMPLEX #30 tabs isosorbide mononitrate 30 mg See Rx Instructions .Rout e 10/13/24 tablet,extended release 24 hr .COMPLEX #90 tabs atorvastatin 40 mg tablet 40 mg PO HS #90 tabs 5 furosemide 40 mg tablet See Rx Instructions .Route 0 01/13/25 .COMPLEX #90 tabs metoprolol succinate 25 mg 25 mg PO DAILY #30 tabs 11/08 tablet,extended release 24 hr (Toprol XL) varenicline tartrate 0.5 mg (11)-1 See Rx Instructions PO PER PKG DIR 06/08/25 mg (42) tablets in a dose pack #53 tabs (Chantix Starting Month Box) varenicline tartrate 1 mg tablet 1 mg PO BID #56 tabs 06/08/25 (Chantix Continuing Month Box) lidocaine 5 % topical patch See Rx Instructions topica l 07/17/25 .COMPLEX #15 ea methocarbamol 1,000 mg tablet 1,000 mg PO TID #90 tabs 07/17/25 Allergies Allergy/AdvReac Type Severity Reaction Status Date / Time hydralazine Allergy Mild itching Verified 06/08/25 08:41 codeine Allergy Nausea Verified 06/08/25 08:41 [facility] Disclaimer: The information contained in this section may have been updated after the patient was seen, as this information can be updated by other users. Medical History Coronary artery disease HLD (hyperlipidemia) Age related osteoporosis Lung nodule Smoking greater than 30 pack years Dyspnea on exertion DDD (degenerative disc disease), lumbar Arthritis COPD (chronic obstructive pulmonary disease) GERD (gastroesophageal reflux disease) COPD (chronic obstructive pulmonary disease) Surgical History History of colonoscopy H/O: hysterectomy Family History Other Family history of myocardial infarction Social History Smoking Status: Current every day smoker tobacco type: cigarettes packs per day: 1 alcohol intake: never substance use type: denies use current occupational status: other Travel in the last 8 weeks?: None household members: family housing: house current occupation: caregiver current occupational exposures/hazards: Yes caffeine: Yes Have you lived/traveled outside [place] in past 30 days?: No Contact w/someone who lives/traveled outside [place] past 30 days?: No Exposure to someone with infectious disease in past 14 days?: No Do you have a fever (greater than 100.4 F or 38 C)?: No Have you tested positive for COVID-19?: No Exposed to someone with COVID-19 in past 14 days?: No Do you have a sore throat?: No Do you have a cough?: No Do you have any weakness?: No Do you have any diarrhea?: No Are you experiencing any unusual bleeding?: No Do you have any muscle aches/pain?: No Do you have any abdominal pain?: No Are you experiencing loss of taste or smell?: No Other Medical History Have you received the Flu Vaccine for this season: Yes Have you received the Pneumonia Vaccine: Yes ROS Obtained: Yes Systems reviewed as appropriate & no additional complaints except as documented Physical Exam General General appearance: other (See MDM) Respiratory Respiratory exam: Present other (See MDM) Cardiovascular Cardiovascular exam: Present other (See MDM) Neurological Exam Neurological exam: Present other (See MDM) Medical Decision Making Medical Records Medical records reviewed: Yes I reviewed the patient's medical records. Screening: Per USPSTF and CDC recommendations, given the prevalence of disease in our region, it is our hospital?s policy to screen for HIV and viral Hepatitis for all patients aged 18 and over and those with ongoing risk factors. Fish Inquiry Pt receiving controlled substance: No Fish was queried for this patient: No Vital Signs: 07/17/25 10:26 07/17/25 10:30 07/17/25 10:31 Temperature 98.0 F Temperature Source Oral Pulse Rate 75 Pulse Rate [Radial] 76 Respiratory Rate 15 16 Blood Pressure 121/73 114/68 Blood Pressure [Right Arm] 119/74 Blood Pressure Mean 86 Blood Pressure Mean [Right Arm] 89 Blood Pressure Source Blood Pressure Source [Right Arm] Automatic Cuff Blood Pressure Position Blood Pressure Position [Right Arm] Sitting 02 Sat by Pulse Oximetry 96 97 Oxygen Delivery Method Room Air 07/17/25 11:00 07/17/25 11:30 07/17/25 12:00 Temperature Temperature Source Pulse Rate 73 70 68 Pulse Rate [Radial] Respiratory Rate 23 22 18 Blood Pressure 103/69 L 105/69 L 104/72 L Blood Pressure [Right Arm] Blood Pressure Mean Blood Pressure Mean [Right Arm] Blood Pressure Source Blood Pressure Source [Right Arm] Blood Pressure Position Blood Pressure Position [Right Arm] 02 Sat by Pulse Oximetry 94 L 95 95 Oxygen Delivery Method 07/17/25 12:30 07/17/25 13:00 07/17/25 13:30 Temperature Temperature Source Pulse Rate 65 66 69 Pulse Rate [Radial] Respiratory Rate 20 17 Blood Pressure 98/69 L 99/69 L 110/66 Blood Pressure [Right Arm] Blood Pressure Mean Blood Pressure Mean [Right Arm] Blood Pressure Source Blood Pressure Source [Right Arm] Blood Pressure Position Blood Pressure Position [Right Arm] 02 Sat by Pulse Oximetry 96 96 97 Oxygen Delivery Method 07/17/25 14:00 07/17/25 14:48 Temperature 98 F Temperature Source Oral Pulse Rate 69 68 Pulse Rate [Radial] Respiratory Rate 16 Blood Pressure 115/71 114/72 Blood Pressure [Right Arm] Blood Pressure Mean Blood Pressure Mean [Right Arm] Blood Pressure Source Automatic Cuff Blood Pressure Source [Right Arm] Blood Pressure Position Sitting Blood Pressure Position [Right Arm] 02 Sat by Pulse Oximetry 96 Oxygen Delivery Method Room Air Lab Data Lab Results 07/17/25 10:29: WBC 13.9 H, RBC 4.66, Hgb 13.8, Hct 44.4, MCV 95.3, MCH 29.6, M CHC 31.1 L, RDW 15.5, Plt Count 389, MPV 11.2 H, Neut % (Auto) 68.0, Lymph % (Auto) 21.6, [place] % (Auto) 8.8, Eos % (Auto) 0.6, Baso % (Auto) 0.6, Neut # (Auto) 9.5 H, Lymph # (Auto) 3.0, [place] # (Auto) 1.2 H, Eos # (Auto) 0.1, Baso # (Auto) 0.1, D-Dimer 0.81 H, Sodium 140, Potassium 4.5, Chloride 108 H, Carbon Dioxide 21 L, Anion Gap 15.5 H, BUN 11, Creatinine 0.80, Estimated Creat Clear 48, Estimated GFR 72, Est GFR ( Amer) 87, Glucose 82, Calcium 9.3, Total Bilirubin 0.9, AST 30, ALT 16, Alkaline Phosphatase 99, Troponin I < 0.01, Total Protein 6.7, Albumin 4.2, Globulin 2.5, Albumin/Globulin Ratio 1.7, Lipase 249 07/17/25 13:15: Troponin I < 0.01 07/17/25 10:29 07/17/25 10:29 Orders (Tests/Meds): ED MEDICATIONS Discontinued Medications Generic Name Dose Route Start Last Admin Trade Name Freq PRN Reason Stop Dose Admin Aspirin 325 mg 07/17/25 10:55 07/17/25 11:05 Aspirin 325mg Tablet PO 07/17/25 10:56 325 mg ONCE ONE Administration Lidocaine 1 each 07/17/25 13:17 07/17/25 13:20 Lidocaine 5% Transdermal Patch TD 07/17/25 13:18 1 each ONCE ONE Administration Methocarbamol 1,500 mg 07/17/25 10:56 07/17/25 11:05 Methocarbamol 500mg Tablet PO 07/17/25 10:57 1,500 mg ONCE ONE Administration ORDERS Category Date Time Status CXR --portable [XR chest portable] Stat Exams 07/17/25 10:55 Completed CBC w/Auto Diff [Complete Blood Count Auto Diff] Stat Lab 07/17/25 10:29 Completed CMP [Comprehensive Metabolic Panel] Stat Lab 07/17/25 10:29 Completed D-Dimer Stat Lab 07/17/25 10: Completed Lipase Stat Lab 07/17/25 10:29 Completed Troponin I Q3H Lab 07/17/25 13:15 Completed Troponin I Stat Lab 07/17/25 10:29 Completed ECG Data Tracing #1: I reviewed this ECG and interpreted as documented below: EKG personally interpreted by me demonstrates normal sinus rhythm with a rate of 73 bpm, normal axis, no PA prolongation, narrow QRS, no QTc prolongation. No ST elevation or depression. No other signs of ischemia or arrhythmia. Interpretation of lead V3 is limited by artifact Medical Decision Narrative: In summary, this is a 64-year-old female patient who is presenting to the emergency department today for right lower pain in the setting of a described overuse syndrome of cranking a lever from over her head to down by her side at work. Patient's comorbidities include hyperlipidemia, CAD, COPD on room air at home. On initial evaluation of the patient they were resting comfortably in no acute distress and nontoxic in appearance. They are hemodynamically stable, saturating well room air, and are neurologically intact. On physical examination the patient's heart and lungs are clear to auscultation bilaterally. No wheezes, rales, rhonchi, or crackles. Abdomen is soft and nontender to palpation. She has no lower extremity erythema or edema. The patient's right chest wall is point tender to palpation over the right lateral rib cage, within the intercostal muscles. Differential diagnose includes ACS/[place], pulmonary embolism, rib fracture, muscle spasm, overuse syndrome, pneumothorax, pneumonia, among others. Workup was initiated with hematologic labs as well as a chest x-ray. Labs were personally interpreted by me and demonstrate a nonspecific leukocytosis of 13.9, no significant electrolyte derangement or evidence of acute kidney injury. Troponin and delta troponin are less than 0.01. The patient has a low risk by Wells criteria so we did proceed with a D-dimer. D- dimer is 0.8 which essentially rules out pulmonary embolism by years criteria. Chest x-ray was personally interpreted by me and demonstrates no lobar consolidation or pleural effusion. Official radiology read is in agreement and states that there is no acute abnormality. We have treated the patient's pain in the emergency department with 1500 mg Robaxin as well as a lidocaine patch. My suspicion is that this is chest wall pain with potential muscle spasms. We will continue treating her pain with Robaxin at home as well as lidocaine patches and nonsteroidals with Tylenol. At this time all questions have been answered and all parties are agreeable with the decision to discharge home. Return precautions have been given Critical Care Critical Care Time Critical Care Time: No
--- NOTE | 2025-07-17 14:33 | PC.NURSE ---
DR SONG AT BEDSIDE
== END 2025-07-17 14:49 | disposition home or self-care (01) ==
PROVIDERS: Emergency Provider Student in an Organized Health Care Education/Training Program; PCP Physician Assistant
DX: R07.89 Other chest pain (principal)
CPT/HCPCS: 71045; 80053; 83690; 84484; 85025; 85378; 93005; 99285